=== PATIENT | male | born 1985 | race Hispanic/Latino ===

== ENCOUNTER 2020-06-15 19:46 | Inpatient (IN) | payer OTHER, MEDICAID ==
[~2020-06-15 19:46] MED LIST: Iopamidol 370 76% 100 ML VIAL ONE; Succinylcholine 200 MG/10 ml SYRINGE FS ONE
[2020-06-15] MEDS ORDERED: manNITOL 20% 0 ML ONE (19:59)
[2020-06-15] MEDS ORDERED: Mannitol 12.5 GM/50 ML ONE ×3 (19:59→20:04)
[2020-06-15] MEDS ORDERED: manNITOL 20% 500 ML ONE (20:05)
[2020-06-15 20:12] LABS: #Eosinphils 0.1 thou/uL (0.0-0.7); #Lymphocytes 1.7 thou/uL (1.20-3.40); #Monocytes 0.8 thou/uL (0.11-0.59); #Neutrophils 16.3 thou/uL (1.40-6.50); %Basophils 0.1 % (0.0-1.0); %Eosinophils 0.5 % (0.0-10.0); %Monocytes 4.1 % (0.0-10.0); %Neutrophils 86.4 % (42.0-75.0); Hemoglobin 12.6 g/dL (14.0-18.0); Mean Corpuscular HGB CONC 33.7 g/dL (32.0-36.0); Mean Corpuscular Hemoglobin 31.2 pg (27.0-31.0); Mean Corpuscular Volume 92.8 fL (78.0-98.0); Platelet Count 191 thou/uL (130-400); RBC Distribution Width 11.8 % (11.5-14.5); Red Blood Cell (RBC) Count 4.05 mill/uL (4.70-6.10); White Blood Cell (WBC) Count 18.9 thou/uL (4.8-10.8)
[2020-06-15 20:18] LABS: INR-International Normal Ratio 1.2; PTT 26.3 sec (22.9-36.1)
[2020-06-15 20:27] LABS: ALT (SGPT) 412 U/L (8-55); AST (SGOT) 406 U/L (5-34); Albumin 3.8 g/dL (3.5-5.0); Alkaline Phosphatase 86 U/L (40-110); Anion Gap 16 mmol/L (10-20); BUN (Urea Nitrogen) 19 mg/dL (8.9-20.6); Bilirubin, Total 0.6 mg/dL (0.2-1.2); Calc. Creatinine Clearance 0 mL/min (70-130); Calcium 7.7 mg/dL (7.8-10.44); Carbon Dioxide 20 mmol/L (22-29); Chloride 108 mmol/L (98-107); Globulin 2.6 g/dL (2.4-3.5); Protein, Total 6.4 g/dL (6.0-8.3); Sodium 141 mmol/L (136-145)
[2020-06-15 20:31] LABS: Glucose 252 mg/dL (70-105); Potassium 2.7 mmol/L (3.5-5.1)
[2020-06-15] MEDS ORDERED: Fentanyl 100 MCG/2 ML VIAL ONE (20:34)
[2020-06-15 20:44] LABS: Analyzer IN Cardio ER; Base Excess (BEa) -7.6 mEq/L (-2.0 to +3.0); CO2 Tension 31.4 mmHg (35.0-45.0); Calcium, Ionized (arterial) 1.08 mmol/L (1.12-1.30); Carboxyhemoglobin (COHb) 0.3 gm% (0.0-3.0); Hemoglobin (Hb) 11.1 g/dL (14.0-18.0); O2 Tension (PaO2), arterial 410.3 mmHg (80.0-100.0); Potassium - ABG Lab 2.66 mmol/L (3.70-5.30); pH, Arterial 7.35 (7.35-7.45)
[2020-06-15 20:45] LABS: Bacteria/HPF None Seen HPF (None Seen); Bilirubin Negative (Negative); Blood, Urine 3+ (Negative); Clarity Turbid (Clear); Glucose, Urine (Dipstick) 150 mg/dL (Negative); Ketone, Urine Negative (Negative); Leukocyte Negative Leu/uL (Negative); Nitrite Negative (Negative); Protein, Urine (Dipstick) 100 mg/dL (Neg-Trace); RBC/HPF Greater than 50 HPF (0-3); Specific Gravity, Urine 1.016 (1.002-1.036); Squamous Epithelial None Seen HPF (0-3); Urobilinogen Normal mg/dL (Less than 2)
[2020-06-15 20:45] LABS: Puncture Site LBA
[2020-06-15] MEDS ORDERED: Propofol 1,000 MG/100 ML VIAL IV ONE (20:47)
[2020-06-15] MEDS ORDERED: Fentanyl CADD 100 ML IV SCH ×2 (21:00→21:45)
[2020-06-15 21:09] LABS: Magnesium 1.9 mg/dL (1.6-2.6); Phosphorus 5.1 mg/dL (2.3-4.7)
[2020-06-15 21:19] LABS: Acetaminophen Less than 6.0 mcg/mL (10.0-30.0); Alcohol Less than 10 mg/dL (Less than 10); CK (CPK) 704 U/L (30-200); Salicylate Less than 8.0 mg/dL (15.0-30.0)
[2020-06-15 21:21] LABS: Amphetamine Not Detected (NotDetected); Barbiturates Screen Not Detected (NotDetected); Benzodiazepine Screen Not Detected (NotDetected); Cocaine Metabolite Screen Not Detected (NotDetected); Medtox Control Line Valid? VALID (VALID); Medtox Reader # READER 4; Methadone Not Detected (NotDetected); Methamphetamine Not Detected (NotDetected); Opiate Screen Not Detected (NotDetected); Oxycodone Screen Not Detected (NotDetected); Phencyclidine (PCP) Not Detected (NotDetected); THC/Cannabinoid Screen Not Detected (NotDetected); Tricyclic Screen Not Detected (NotDetected)
[2020-06-15] MEDS ORDERED: Dextrose 5% in Water 1,000 ML IV PRN (21:21)
[2020-06-15] MEDS ORDERED: Ondansetron PF 4 MG/2 ML Vial IVP PRN (21:21)
[2020-06-15] MEDS ORDERED: Dextrose 50% Abboject 50 ML SYRINGE SLOW IVP PRN (21:21)
[2020-06-15] MEDS ORDERED: Ventilator Sedation Protocol 1 EACH FS ONE (21:21)
[2020-06-15] MEDS ORDERED: Propofol 1,000 MG/100 ML VIAL IV PRN (21:45)
[2020-06-15] MEDS ORDERED: Propofol BOLUS 1,000 MG/100 ML VIAL IV PRN (21:45)
[2020-06-15] MEDS ORDERED: Lorazepam 2 MG/ML VIAL SLOW IVP PRN (21:45)
[2020-06-15] MEDS ORDERED: DISCONTINUE PREVIOUS NARCOTIC PAIN MEDICATIONS AND BENZODIAZEPINES FS SCH (21:45)
[2020-06-15] MEDS ORDERED: Fentanyl BOLUS 250 ML IVPB PRN (21:45)
[2020-06-15 22:19] LABS: SARS-CoV-2 NAA Rapid Test Not Detected (NotDetected)
[2020-06-15] MEDS ORDERED: Boostrix 0.5 ML (Tdap) VIAL ONE (22:20)
[2020-06-15] MEDS ORDERED: Lidocaine 1% PF 5 ML VIAL ONE (22:26)
[2020-06-15] MEDS ORDERED: Lidocaine 1% w/Epinephrine 1:100K 20 ML VIAL ONE (22:26)
[2020-06-15] MEDS ORDERED: Lidocaine 1% (PF) 30 ML VIAL ONE (22:27)
[2020-06-15] MEDS: Sodium Chloride 0.9% 1,000 ML IV SCH (23:45)
[2020-06-16] MEDS ORDERED: Sodium Chloride 0.9% 1,000 ML IV SCH (01:45)
[2020-06-16 03:53] LABS: #Lymphocytes 1.1 thou/uL (1.20-3.40); #Monocytes 1.2 thou/uL (0.11-0.59); #Neutrophils 10.4 thou/uL (1.40-6.50); %Eosinophils 0.2 % (0.0-10.0); %Lymphocytes 8.6 % (21.0-51.0); %Monocytes 9.6 % (0.0-10.0); %Neutrophils 81.6 % (42.0-75.0); Hemoglobin 10.5 g/dL (14.0-18.0); Mean Corpuscular HGB CONC 34.6 g/dL (32.0-36.0); Mean Corpuscular Hemoglobin 32.1 pg (27.0-31.0); Mean Corpuscular Volume 92.9 fL (78.0-98.0); Platelet Count 158 thou/uL (130-400); RBC Distribution Width 11.9 % (11.5-14.5); Red Blood Cell (RBC) Count 3.28 mill/uL (4.70-6.10); White Blood Cell (WBC) Count 12.8 thou/uL (4.8-10.8)
[2020-06-16 04:22] LABS: ALT (SGPT) 308 U/L (8-55); AST (SGOT) 250 U/L (5-34); Albumin 3.2 g/dL (3.5-5.0); Alkaline Phosphatase 69 U/L (40-110); Anion Gap 17 mmol/L (10-20); BUN (Urea Nitrogen) 17 mg/dL (8.9-20.6); Bilirubin, Total 0.7 mg/dL (0.2-1.2); CK (CPK) 1761 U/L (30-200); Calc. Creatinine Clearance 124 mL/min (70-130); Calcium 7.2 mg/dL (7.8-10.44); Carbon Dioxide 15 mmol/L (22-29); Chloride 113 mmol/L (98-107); Globulin 2.3 g/dL (2.4-3.5); Glucose 111 mg/dL (70-105); Magnesium 1.7 mg/dL (1.6-2.6); Phosphorus 3.2 mg/dL (2.3-4.7); Potassium 3.6 mmol/L (3.5-5.1); Protein, Total 5.5 g/dL (6.0-8.3); Sodium 141 mmol/L (136-145)
[2020-06-16 07:00] LABS: Lactic Acid 3.4 mmol/L (0.5-2.2)
[2020-06-16] MEDS ORDERED: Acetaminophen 650 MG/20.3 ML UDCUP PO SCH (07:30)
[2020-06-16] MEDS ORDERED: CEFAZOLIN 2 GM in Premix Bag 1 BAG IVPB SCH (07:45)
[2020-06-16] MEDS: Famotidine/PF 20 mg/2ml Vial SLOW IVP SCH ×2 (08:22→21:39)
[2020-06-16] MEDS: Sodium Chloride 0.9% 1,000 ML IV SCH ×3 (08:23→21:41)
[2020-06-16 08:37] LABS: Actual Bicarbonate (HCO3a) 17.8 mEq/L (22-28); Analyzer IN Cardio ER; Base Excess (BEa) -5.5 mEq/L (-2.0 to +3.0); CO2 Tension 27.8 mmHg (35.0-45.0); Calcium, Ionized (arterial) 1.09 mmol/L (1.12-1.30); Carboxyhemoglobin (COHb) 0.3 gm% (0.0-3.0); Hemoglobin (Hb) 10.5 g/dL (14.0-18.0); O2 Tension (PaO2), arterial 102.8 mmHg (80.0-100.0); Potassium - ABG Lab 3.49 mmol/L (3.70-5.30); pH, Arterial 7.42 (7.35-7.45)
[2020-06-16 08:44] LABS: Puncture Site RBA
[2020-06-16] MEDS ORDERED: Potassium Phosphate 30 MMOL, Magnesium Sulfate 2 GM in Sodium Chloride 0.9% 250 ML 250 ML IVPB SCH (09:00)
[2020-06-16] MEDS ORDERED: Magnesium Sulfate 2 GM in Sodium Chloride 0.9% 100 ML IVPB SCH (09:00)
[2020-06-16] MEDS ORDERED: Calcium Chloride 1 GM/10 ML Abboject SYRINGE IVP SCH (13:30)
[2020-06-16] MEDS ORDERED: Fentanyl CADD 100 ML ONE (14:33)
[2020-06-16] MEDS ORDERED: Fentanyl 250 MCG/5 ML VIAL ONE (16:54)
[2020-06-16] MEDS ORDERED: Rocuronium Bromide 10 MG/ML (10ML VIAL) ONE (17:13)
[2020-06-16] MEDS ORDERED: PHENYLEPHRINE-NS 100 MCG/ML 10 ML SYRINGE ONE (17:13)
[2020-06-16] MEDS ORDERED: Phenylephrine 10 MG/ML VIAL ONE (17:24)
[2020-06-16] MEDS: Acetaminophen 650 MG/20.3 ML UDCUP PO PRN (23:37)
[2020-06-17] MEDS: Morphine 2 MG/ML VIAL SLOW IVP PRN (00:56)
[2020-06-17] MEDS ORDERED: Sodium Chloride 0.9% 1,000 ML IV SCH (02:30)
[2020-06-17] MEDS: CEFAZOLIN 2 GM in Premix Bag 1 BAG IVPB SCH ×2 (03:20→09:30)
[2020-06-17 03:24] LABS: #Lymphocytes 1.2 thou/uL (1.20-3.40); #Monocytes 0.8 thou/uL (0.11-0.59); #Neutrophils 5.7 thou/uL (1.40-6.50); %Basophils 0.1 % (0.0-1.0); %Eosinophils 0.4 % (0.0-10.0); %Lymphocytes 15.6 % (21.0-51.0); %Monocytes 10.5 % (0.0-10.0); %Neutrophils 73.4 % (42.0-75.0); Hemoglobin 7.7 g/dL (14.0-18.0); Mean Corpuscular HGB CONC 34.2 g/dL (32.0-36.0); Mean Corpuscular Hemoglobin 32.2 pg (27.0-31.0); Mean Corpuscular Volume 94.1 fL (78.0-98.0); Mean Platelet Volume 9.1 fL (7.4-10.4); Platelet Count 132 thou/uL (130-400); RBC Distribution Width 11.8 % (11.5-14.5); Red Blood Cell (RBC) Count 2.38 mill/uL (4.70-6.10); White Blood Cell (WBC) Count 7.7 thou/uL (4.8-10.8)
[2020-06-17 03:34] LABS: Lactic Acid 1.5 mmol/L (0.5-2.2)
[2020-06-17 03:51] LABS: ALT (SGPT) 141 U/L (8-55); AST (SGOT) 85 U/L (5-34); Albumin 2.6 g/dL (3.5-5.0); Alkaline Phosphatase 57 U/L (40-110); Anion Gap 11 mmol/L (10-20); BUN (Urea Nitrogen) 13 mg/dL (8.9-20.6); Bilirubin, Total 1.1 mg/dL (0.2-1.2); Calc. Creatinine Clearance 150 mL/min (70-130); Calcium 7.2 mg/dL (7.8-10.44); Carbon Dioxide 19 mmol/L (22-29); Chloride 117 mmol/L (98-107); Globulin 2.1 g/dL (2.4-3.5); Glucose 123 mg/dL (70-105); Magnesium 1.8 mg/dL (1.6-2.6); Phosphorus 2.1 mg/dL (2.3-4.7); Potassium 3.6 mmol/L (3.5-5.1); Protein, Total 4.7 g/dL (6.0-8.3); Sodium 143 mmol/L (136-145)
[2020-06-17] MEDS: Sodium Chloride 0.9% 1,000 ML IV SCH (06:32)
[2020-06-17] MEDS ORDERED: Lactated Ringer's 1,000 ML IV SCH ×2 (08:15→16:00)
[2020-06-17] MEDS ORDERED: Fentanyl CADD 100 ML ONE (09:07)
[2020-06-17] MEDS: Famotidine/PF 20 mg/2ml Vial SLOW IVP SCH ×2 (09:27→20:39)
[2020-06-17] MEDS ORDERED: Furosemide 20 MG/2 ML VIAL SLOW IVP SCH (10:00)
[2020-06-17 10:26] LABS: Actual Bicarbonate (HCO3a) 20.6 mEq/L (22-28); Calcium, Ionized (arterial) 1.12 mmol/L (1.12-1.30); Carboxyhemoglobin (COHb) 0.8 gm% (0.0-3.0); Hemoglobin (Hb) 7.8 g/dL (14.0-18.0); O2 Tension (PaO2), arterial 103.6 mmHg (80.0-100.0); Potassium - ABG Lab 3.58 mmol/L (3.70-5.30); pH, Arterial 7.39 (7.35-7.45)
[2020-06-17 10:27] LABS: Puncture Site RRA
[2020-06-17] MEDS: Acetaminophen 650 MG/20.3 ML UDCUP PO PRN ×2 (12:00→20:38)
[2020-06-17] MEDS ORDERED: cloNIDine 0.2 MG TAB PO SCH (12:00)
[2020-06-17] MEDS ORDERED: cloNIDine 0.1 MG TAB PO SCH ×2 (12:15→18:00)
[2020-06-17 14:01] LABS: Actual Bicarbonate (HCO3a) 26.2 mEq/L (22-28); Base Excess (BEa) -4.1 mEq/L (-2.0 to +3.0); Calcium, Ionized (arterial) 1.17 mmol/L (1.12-1.30); Carboxyhemoglobin (COHb) 0.3 gm% (0.0-3.0); O2 Tension (PaO2), arterial 94.1 mmHg (80.0-100.0)
[2020-06-17] MEDS: Insulin Regular 300 UNITS/3 ML VIAL SC PRN (16:32)
[2020-06-17] MEDS: Lactated Ringer's 1,000 ML IV SCH (20:40)
[2020-06-17 21:26] LABS: #Lymphocytes 1.1 thou/uL (1.20-3.40); #Monocytes 0.6 thou/uL (0.11-0.59); #Neutrophils 5.7 thou/uL (1.40-6.50); %Basophils 0.2 % (0.0-1.0); %Eosinophils 0.3 % (0.0-10.0); %Lymphocytes 14.3 % (21.0-51.0); %Monocytes 8.2 % (0.0-10.0); Mean Corpuscular HGB CONC 34.4 g/dL (32.0-36.0); Mean Corpuscular Hemoglobin 32.5 pg (27.0-31.0); Mean Corpuscular Volume 94.5 fL (78.0-98.0); Mean Platelet Volume 8.9 fL (7.4-10.4); Platelet Count 130 thou/uL (130-400); RBC Distribution Width 11.8 % (11.5-14.5); Red Blood Cell (RBC) Count 2.16 mill/uL (4.70-6.10); White Blood Cell (WBC) Count 7.4 thou/uL (4.8-10.8)
[2020-06-17] MEDS: Oxymetazoline HCl 0.05% (30 ML BOT) NS SCH (21:51)
[2020-06-17] MEDS: cloNIDine 0.1 MG TAB PO SCH (21:51)
[2020-06-17 22:20] LABS: Bilirubin Negative (Negative); Blood, Urine 3+ (Negative); Clarity Clear (Clear); Glucose, Urine (Dipstick) Normal (Negative); Ketone, Urine 40 mg/dL (Negative); Leukocyte Negative Leu/uL (Negative); Nitrite Negative (Negative); Protein, Urine (Dipstick) 50 mg/dL (Neg-Trace); RBC/HPF Greater than 50 HPF (0-3); Specific Gravity, Urine 1.024 (1.002-1.036); Squamous Epithelial None Seen HPF (0-3); Urobilinogen Normal mg/dL (Less than 2)
[2020-06-17 22:21] LABS: Bacteria/HPF 1+ HPF (None Seen); Urine Culture Reflex Yes Yes
[2020-06-18] MEDS: cloNIDine 0.1 MG TAB PO SCH ×4 (03:32→20:31)
[2020-06-18] MEDS: Acetaminophen 650 MG/20.3 ML UDCUP PO PRN ×2 (03:32→13:41)
[2020-06-18 03:39] LABS: #Lymphocytes 0.9 thou/uL (1.20-3.40); %Basophils 0.3 % (0.0-1.0); %Eosinophils 0.4 % (0.0-10.0); %Lymphocytes 10.5 % (21.0-51.0); %Monocytes 11.2 % (0.0-10.0); %Neutrophils 77.5 % (42.0-75.0); Hemoglobin 7.4 g/dL (14.0-18.0); Mean Corpuscular HGB CONC 34.1 g/dL (32.0-36.0); Mean Corpuscular Hemoglobin 31.9 pg (27.0-31.0); Mean Corpuscular Volume 93.4 fL (78.0-98.0); Mean Platelet Volume 9.1 fL (7.4-10.4); Platelet Count 123 thou/uL (130-400); RBC Distribution Width 11.9 % (11.5-14.5); Red Blood Cell (RBC) Count 2.32 mill/uL (4.70-6.10)
[2020-06-18 03:53] LABS: Lactic Acid 2.1 mmol/L (0.5-2.2)
[2020-06-18 04:04] LABS: ALT (SGPT) 95 U/L (8-55); AST (SGOT) 74 U/L (5-34); Albumin 2.8 g/dL (3.5-5.0); Alkaline Phosphatase 60 U/L (40-110); Anion Gap 13 mmol/L (10-20); BUN (Urea Nitrogen) 11 mg/dL (8.9-20.6); Bilirubin, Direct 0.5 mg/dL (0.1-0.3); Bilirubin, Total 1.2 mg/dL (0.2-1.2); CK (CPK) 2401 U/L (30-200); Calc. Creatinine Clearance 159 mL/min (70-130); Calcium 7.7 mg/dL (7.8-10.44); Carbon Dioxide 19 mmol/L (22-29); Chloride 114 mmol/L (98-107); Glucose 125 mg/dL (70-105); Potassium 3.6 mmol/L (3.5-5.1); Protein, Total 5.3 g/dL (6.0-8.3); Sodium 142 mmol/L (136-145)
[2020-06-18 07:25] LABS: CO2 Tension 88.4 mmHg (35.0-45.0); pH, Arterial 7.09 (7.35-7.45)
[2020-06-18 07:26] LABS: Puncture Site RRA
[2020-06-18] MEDS ORDERED: Vecuronium 10 MG VIAL IVP SCH (08:15)
[2020-06-18] MEDS: Midazolam HCl 2 mg/2 ml Vial SLOW IVP PRN (08:26)
[2020-06-18] MEDS: Famotidine/PF 20 mg/2ml Vial SLOW IVP SCH ×2 (08:51→20:30)
[2020-06-18] MEDS: Oxymetazoline HCl 0.05% (30 ML BOT) NS SCH ×2 (09:04→20:31)
[2020-06-18 09:43] LABS: Actual Bicarbonate (HCO3a) 24.2 mEq/L (22-28); Base Excess (BEa) -1.1 mEq/L (-2.0 to +3.0); CO2 Tension 43.1 mmHg (35.0-45.0); Calcium, Ionized (arterial) 1.08 mmol/L (1.12-1.30); Carboxyhemoglobin (COHb) 0.8 gm% (0.0-3.0); O2 Tension (PaO2), arterial 72.6 mmHg (80.0-100.0); Potassium - ABG Lab 3.48 mmol/L (3.70-5.30); pH, Arterial 7.37 (7.35-7.45)
[2020-06-18 09:47] LABS: ALV-art Gradient 230.025 mmHg (0-20); Puncture Site RRA
[2020-06-18] MEDS ORDERED: Lactated Ringer's 1,000 ML IV SCH ×2 (15:15→22:44)
[2020-06-18] MEDS: Lactated Ringer's 1,000 ML IV SCH ×2 (15:39→23:07)
[2020-06-18] MEDS ORDERED: Thiamine HCl 200 MG/2 ML VIAL SLOW IVP SCH (16:00)
[2020-06-18 16:11] LABS: Hemoglobin 8.3 g/dL (14.0-18.0); Mean Corpuscular HGB CONC 33.9 g/dL (32.0-36.0); Mean Corpuscular Hemoglobin 31.7 pg (27.0-31.0); Mean Corpuscular Volume 93.6 fL (78.0-98.0); Mean Platelet Volume 8.9 fL (7.4-10.4); Platelet Count 154 thou/uL (130-400); RBC Distribution Width 12.3 % (11.5-14.5); Red Blood Cell (RBC) Count 2.63 mill/uL (4.70-6.10); White Blood Cell (WBC) Count 3.9 thou/uL (4.8-10.8)
[2020-06-18 16:28] LABS: Band 63 % (5-11); Lymphocytes 8 % (21-51); MDiff Complete? YES; Metamyelocyte 6 % (0-0); Monocytes 4 % (0-10); Neutrophil 14 % (42-75); Platelet Morphology Comment Appears Adequate; Polychromasia SLIGHT = 2-3 cells (100X) (0-2/hpf); Reactive Lymphocytes 5 % (0-10); Reflex for Review?? NO
[2020-06-18] MEDS ORDERED: Midazolam HCl 2 mg/2 ml Vial SLOW IVP SCH (16:45)
[2020-06-18 17:36] LABS: Free T4 (Free Thyroxine) 0.73 ng/dL (0.70-1.48)
[2020-06-18] MEDS: Piperacillin/Tazobactam 3.375 GM in Sodium Chloride 0.9% 100 ML IVPB SCH (17:55)
[2020-06-18] MEDS: Ibuprofen 100 MG/5 ML UDCUP PO SCH (17:56)
[2020-06-18] MEDS ORDERED: Oxazepam 10 MG CAP PO SCH (22:00)
[2020-06-18] MEDS ORDERED: Calcium Chloride 1 GM/10 ML Abboject SYRINGE IVP SCH (22:15)
[2020-06-18 22:17] LABS: Actual Bicarbonate (HCO3a) 24.5 mEq/L (22-28); CO2 Tension 50.9 mmHg (35.0-45.0); Calcium, Ionized (arterial) 1.19 mmol/L (1.12-1.30); Carboxyhemoglobin (COHb) 0.3 gm% (0.0-3.0); Hemoglobin (Hb) 8.4 g/dL (14.0-18.0); Potassium - ABG Lab 3.52 mmol/L (3.70-5.30)
[2020-06-18 22:19] LABS: Puncture Site LRA
[2020-06-18 22:20] LABS: ALV-art Gradient 391.475 mmHg (0-20)
[2020-06-18] MEDS ORDERED: Hydrocortisone Sod Succ/PF 100 mg/2 ml Vial IVP SCH ×2 (22:28→22:30)
[2020-06-18] MEDS ORDERED: Albumin 5% 0 ML ONE (22:36)
[2020-06-19] MEDS: Piperacillin/Tazobactam 3.375 GM in Sodium Chloride 0.9% 100 ML IVPB SCH ×5 (00:15→22:34)
[2020-06-19] MEDS: Ibuprofen 100 MG/5 ML UDCUP PO SCH ×3 (01:29→17:47)
[2020-06-19] MEDS ORDERED: Hydrocortisone Sod Succ/PF 100 mg/2 ml Vial IVP SCH (03:00)
[2020-06-19] MEDS: cloNIDine 0.1 MG TAB PO SCH ×4 (03:13→22:22)
[2020-06-19] MEDS ORDERED: Norepinephrine 8 MG/0.9% NS 250 ML ONE (03:47)
[2020-06-19 03:49] LABS: Actual Bicarbonate (HCO3a) 24.6 mEq/L (22-28); Base Excess (BEa) -3.9 mEq/L (-2.0 to +3.0); Calcium, Ionized (arterial) 1.31 mmol/L (1.12-1.30); Carboxyhemoglobin (COHb) 0.4 gm% (0.0-3.0); Hemoglobin (Hb) 8.7 g/dL (14.0-18.0); Potassium - ABG Lab 2.78 mmol/L (3.70-5.30)
[2020-06-19 03:50] LABS: CO2 Tension 65.7 mmHg (35.0-45.0); pH, Arterial 7.19 (7.35-7.45)
[2020-06-19 03:51] LABS: O2 Tension (PaO2), arterial 53.3 mmHg (80.0-100.0); Puncture Site LRA
[2020-06-19 03:52] LABS: ALV-art Gradient 577.575 mmHg (0-20)
[2020-06-19] MEDS ORDERED: Phenylephrine 40 MG in Sodium Chloride 0.9% 250 ML 250 ML IVPB PRN (04:03)
[2020-06-19] MEDS ORDERED: Phenylephrine 40 MG in Sodium Chloride 0.9% 250 ML 250 ML IVPB SCH (04:15)
[2020-06-19 04:22] LABS: SARS-CoV-2 PCR by NAA Not Detected (NotDetected)
[2020-06-19 04:23] LABS: Anion Gap 11 mmol/L (10-20); BUN (Urea Nitrogen) 13 mg/dL (8.9-20.6); CK (CPK) 915 U/L (30-200); Calc. Creatinine Clearance 171 mL/min (70-130); Calcium 8.4 mg/dL (7.8-10.44); Carbon Dioxide 24 mmol/L (22-29); Chloride 113 mmol/L (98-107); Glucose 132 mg/dL (70-105); Magnesium 1.8 mg/dL (1.6-2.6); Phosphorus 2.1 mg/dL (2.3-4.7); Sodium 145 mmol/L (136-145)
[2020-06-19] MEDS ORDERED: VANCOMYCIN 1.75 GM/350 ML BAG IVPB STA (04:36)
[2020-06-19 05:02] LABS: Potassium 2.7 mmol/L (3.5-5.1)
[2020-06-19 05:04] LABS: Band 41 % (5-11); Hemoglobin 8.1 g/dL (14.0-18.0); Lymphocytes 27 % (21-51); MDiff Complete? YES; Mean Corpuscular HGB CONC 33.4 g/dL (32.0-36.0); Mean Corpuscular Hemoglobin 31.5 pg (27.0-31.0); Mean Corpuscular Volume 94.4 fL (78.0-98.0); Mean Platelet Volume 8.9 fL (7.4-10.4); Metamyelocyte 7 % (0-0); Monocytes 10 % (0-10); Myelocyte 5 % (0-0); Neutrophil 10 % (42-75); Nucleated RBC 1 % (0); Platelet Count 145 thou/uL (130-400); RBC Distribution Width 12.5 % (11.5-14.5); Red Blood Cell (RBC) Count 2.57 mill/uL (4.70-6.10); White Blood Cell (WBC) Count 1.3 thou/uL (4.8-10.8)
[2020-06-19] MEDS ORDERED: Potassium Phosphate 30 MMOL in Sodium Chloride 0.9% 250 ML 250 ML IVPB SCH ×2 (05:30→06:00)
[2020-06-19] MEDS ORDERED: Vancomycin 1.5 GRAM/300 ML BAG 1.5 GM in Premix Bag 1 BAG IVPB SCH (05:45)
[2020-06-19] MEDS ORDERED: Norepinephrine 8 MG/0.9% NS 250 ML IVPB PRN ×2 (05:52→16:11)
[2020-06-19] MEDS: Potassium Phosphate 30 MMOL in Sodium Chloride 0.9% 250 ML 250 ML IVPB SCH ×2 (05:53→12:13)
[2020-06-19 06:07] LABS: Lactic Acid 2.3 mmol/L (0.5-2.2)
[2020-06-19 06:12] LABS: ALT (SGPT) 56 U/L (8-55); AST (SGOT) 42 U/L (5-34); Albumin 2.7 g/dL (3.5-5.0); Alkaline Phosphatase 53 U/L (40-110); Bilirubin, Total 1.6 mg/dL (0.2-1.2)
[2020-06-19] MEDS: Lactated Ringer's 1,000 ML IV SCH ×3 (06:42→15:25)
[2020-06-19 06:54] LABS: Actual Bicarbonate (HCO3a) 24.5 mEq/L (22-28); Base Excess (BEa) -2.1 mEq/L (-2.0 to +3.0); CO2 Tension 52.1 mmHg (35.0-45.0); Calcium, Ionized (arterial) 1.26 mmol/L (1.12-1.30); Carboxyhemoglobin (COHb) 0.2 gm% (0.0-3.0); O2 Tension (PaO2), arterial 86.4 mmHg (80.0-100.0); Potassium - ABG Lab 2.92 mmol/L (3.70-5.30); pH, Arterial 7.29 (7.35-7.45)
[2020-06-19 06:59] LABS: ALV-art Gradient 561.475 mmHg (0-20); Puncture Site RRA
[2020-06-19] MEDS: Polyethylene Glycol 3350 17 GM Packet PO SCH (08:46)
[2020-06-19] MEDS: Folic Acid 1 MG TAB PO SCH (08:46)
[2020-06-19] MEDS: Famotidine/PF 20 mg/2ml Vial SLOW IVP SCH ×2 (08:46→22:23)
[2020-06-19] MEDS: Oxymetazoline HCl 0.05% (30 ML BOT) NS SCH ×2 (09:19→22:24)
[2020-06-19] MEDS: Metoclopramide 10 MG/10 ML UDCUP PO SCH ×3 (09:30→22:34)
[2020-06-19] MEDS ORDERED: Iopamidol-370 76% 500 ML 1 ML ONE (09:30)
[2020-06-19] MEDS ORDERED: Midazolam HCl 2 mg/2 ml Vial SLOW IVP SCH (11:15)
[2020-06-19] MEDS ORDERED: Vecuronium 10 MG VIAL ONE (11:28)
[2020-06-19] MEDS ORDERED: Vecuronium 10 MG VIAL IVP SCH (11:59)
[2020-06-19] MEDS ORDERED: Potassium Phosphate 30 MMOL, Magnesium Sulfate 2 GM in Sodium Chloride 0.9% 250 ML 250 ML IVPB SCH (12:00)
[2020-06-19] MEDS ORDERED: Fentanyl CADD 100 ML ONE (12:46)
[2020-06-19] MEDS ORDERED: Vancomycin HCl 1.25 GM in Sodium Chloride 0.9% 250 ML 250 ML IVPB SCH (14:00)
[2020-06-19] MEDS: Hydrocortisone Sod Succ/PF 100 mg/2 ml Vial IVP SCH ×2 (14:22→22:24)
[2020-06-19] MEDS: Insulin Regular 300 UNITS/3 ML VIAL SC PRN (16:04)
[2020-06-19 19:37] LABS: Actual Bicarbonate (HCO3a) 23.2 mEq/L (22-28); Base Excess (BEa) -1.9 mEq/L (-2.0 to +3.0); CO2 Tension 40.9 mmHg (35.0-45.0); Calcium, Ionized (arterial) 1.17 mmol/L (1.12-1.30); Carboxyhemoglobin (COHb) 0.3 gm% (0.0-3.0); Hemoglobin (Hb) 7.4 g/dL (14.0-18.0); Potassium - ABG Lab 3.51 mmol/L (3.70-5.30); Puncture Site LRA; pH, Arterial 7.37 (7.35-7.45)
[2020-06-19 19:38] LABS: ALV-art Gradient 209.375 mmHg (0-20)
[2020-06-20] MEDS: Ibuprofen 100 MG/5 ML UDCUP PO SCH ×4 (02:43→18:00)
[2020-06-20] MEDS: Lactated Ringer's 1,000 ML IV SCH (02:44)
[2020-06-20] MEDS: cloNIDine 0.1 MG TAB PO SCH (02:44)
[2020-06-20] MEDS: Metoclopramide HCl 10 MG/2 ML VIAL IVP SCH ×4 (02:48→21:11)
[2020-06-20 03:39] LABS: Lactic Acid 1.8 mmol/L (0.5-2.2)
[2020-06-20 03:42] LABS: Anion Gap 11 mmol/L (10-20); BUN (Urea Nitrogen) 15 mg/dL (8.9-20.6); Calc. Creatinine Clearance 171 mL/min (70-130); Calcium 8.2 mg/dL (7.8-10.44); Carbon Dioxide 26 mmol/L (22-29); Chloride 113 mmol/L (98-107); Glucose 147 mg/dL (70-105); Magnesium 2.1 mg/dL (1.6-2.6); Potassium 3.8 mmol/L (3.5-5.1); Sodium 146 mmol/L (136-145)
[2020-06-20 04:10] LABS: Phosphorus 1.8 mg/dL (2.3-4.7)
[2020-06-20] MEDS: Acetaminophen 650 MG/20.3 ML UDCUP PO PRN ×2 (04:51→21:10)
[2020-06-20] MEDS: Piperacillin/Tazobactam 3.375 GM in Sodium Chloride 0.9% 100 ML IVPB SCH ×4 (04:52→23:09)
[2020-06-20] MEDS: Hydrocortisone Sod Succ/PF 100 mg/2 ml Vial IVP SCH ×3 (04:53→21:11)
[2020-06-20 05:36] LABS: Band 46 % (5-11); Eosinophils 1 % (0-10); Hemoglobin 7.8 g/dL (14.0-18.0); Lymphocytes 13 % (21-51); MDiff Complete? YES; Mean Corpuscular HGB CONC 32.8 g/dL (32.0-36.0); Mean Corpuscular Volume 94.4 fL (78.0-98.0); Mean Platelet Volume 9.1 fL (7.4-10.4); Metamyelocyte 10 % (0-0); Monocytes 2 % (0-10); Myelocyte 6 % (0-0); Neutrophil 21 % (42-75); Nucleated RBC 7 % (0); Platelet Count 174 thou/uL (130-400); RBC Distribution Width 12.8 % (11.5-14.5); Red Blood Cell (RBC) Count 2.53 mill/uL (4.70-6.10); White Blood Cell (WBC) Count 8.4 thou/uL (4.8-10.8)
[2020-06-20] MEDS ORDERED: Levothyroxine 100 MCG SDV IVP SCH (06:00)
[2020-06-20] MEDS ORDERED: Potassium Phosphate 30 MMOL, Magnesium Sulfate 2 GM in Sodium Chloride 0.9% 250 ML 250 ML IVPB SCH (08:45)
[2020-06-20] MEDS: Dextrose 5 %-0.45 % NaCl 1,000 ML IV SCH ×2 (09:25→19:30)
[2020-06-20] MEDS: Polyethylene Glycol 3350 17 GM Packet PO SCH (09:26)
[2020-06-20] MEDS: Famotidine/PF 20 mg/2ml Vial SLOW IVP SCH ×2 (09:28→21:11)
[2020-06-20] MEDS: Folic Acid 1 MG TAB PO SCH (09:28)
[2020-06-20] MEDS: Oxymetazoline HCl 0.05% (30 ML BOT) NS SCH ×2 (09:30→21:13)
[2020-06-20 11:36] LABS: Actual Bicarbonate (HCO3a) 25.7 mEq/L (22-28); Base Excess (BEa) 1.2 mEq/L (-2.0 to +3.0); CO2 Tension 40.6 mmHg (35.0-45.0); Calcium, Ionized (arterial) 1.12 mmol/L (1.12-1.30); Hemoglobin (Hb) 8.1 g/dL (14.0-18.0); O2 Tension (PaO2), arterial 81.2 mmHg (80.0-100.0); Potassium - ABG Lab 3.57 mmol/L (3.70-5.30); pH, Arterial 7.42 (7.35-7.45)
[2020-06-20 11:37] LABS: Puncture Site RRA
[2020-06-20] MEDS: Insulin Regular 300 UNITS/3 ML VIAL SC PRN (22:11)
[2020-06-21] MEDS: Ibuprofen 100 MG/5 ML UDCUP PO SCH ×3 (01:24→18:01)
[2020-06-21] MEDS: Metoclopramide HCl 10 MG/2 ML VIAL IVP SCH ×4 (02:15→20:42)
[2020-06-21] MEDS: Morphine 2 MG/ML VIAL SLOW IVP PRN ×5 (02:15→18:02)
[2020-06-21] MEDS: Dextrose 5 %-0.45 % NaCl 1,000 ML IV SCH (04:06)
[2020-06-21 04:42] LABS: Anion Gap 8 mmol/L (10-20); BUN (Urea Nitrogen) 13 mg/dL (8.9-20.6); Calc. Creatinine Clearance 195 mL/min (70-130); Carbon Dioxide 28 mmol/L (22-29); Chloride 113 mmol/L (98-107); Glucose 155 mg/dL (70-105); Magnesium 2.4 mg/dL (1.6-2.6); Potassium 3.4 mmol/L (3.5-5.1); Sodium 146 mmol/L (136-145)
[2020-06-21 04:43] LABS: Hemoglobin 8.1 g/dL (14.0-18.0); Mean Corpuscular HGB CONC 32.9 g/dL (32.0-36.0); Mean Corpuscular Volume 94.1 fL (78.0-98.0); Mean Platelet Volume 8.9 fL (7.4-10.4); Platelet Count 173 thou/uL (130-400); RBC Distribution Width 12.8 % (11.5-14.5); Red Blood Cell (RBC) Count 2.63 mill/uL (4.70-6.10); White Blood Cell (WBC) Count 14.9 thou/uL (4.8-10.8)
[2020-06-21 05:25] LABS: Band 40 % (5-11); Lymphocytes 13 % (21-51); MDiff Complete? YES; Monocytes 5 % (0-10); Myelocyte 2 % (0-0); Neutrophil 40 % (42-75); Nucleated RBC 1 % (0)
[2020-06-21] MEDS: Hydrocortisone Sod Succ/PF 100 mg/2 ml Vial IVP SCH (05:30)
[2020-06-21] MEDS: Piperacillin/Tazobactam 3.375 GM in Sodium Chloride 0.9% 100 ML IVPB SCH ×4 (05:30→23:18)
[2020-06-21] MEDS ORDERED: Furosemide 20 MG/2 ML VIAL SLOW IVP SCH (08:30)
[2020-06-21] MEDS: Famotidine/PF 20 mg/2ml Vial SLOW IVP SCH ×2 (08:42→20:42)
[2020-06-21] MEDS: Oxymetazoline HCl 0.05% (30 ML BOT) NS SCH ×2 (08:43→20:43)
[2020-06-21] MEDS: Folic Acid 1 MG TAB PO SCH (08:43)
[2020-06-21] MEDS: Midazolam HCl 2 mg/2 ml Vial SLOW IVP PRN (09:49)
[2020-06-21] MEDS: Enoxaparin Sodium 40 MG/0.4 ML SYRINGE SC SCH (10:13)
[2020-06-21] MEDS: Acetaminophen/Codeine 30-300mg Tablet PO SCH ×3 (12:20→20:42)
[2020-06-21] MEDS: Insulin Regular 300 UNITS/3 ML VIAL SC PRN (16:58)
[2020-06-21] MEDS: Amantadine HCl 100 mg Capsule PO SCH (20:43)
[2020-06-22] MEDS: Ibuprofen 100 MG/5 ML UDCUP PO SCH ×3 (00:01→17:38)
[2020-06-22] MEDS: Acetaminophen/Codeine 30-300mg Tablet PO SCH ×6 (00:06→19:43)
[2020-06-22] MEDS: Morphine 2 MG/ML VIAL SLOW IVP PRN ×2 (02:27→20:20)
[2020-06-22] MEDS: Metoclopramide HCl 10 MG/2 ML VIAL IVP SCH ×2 (02:27→11:50)
[2020-06-22] MEDS: Insulin Regular 300 UNITS/3 ML VIAL SC PRN (04:10)
[2020-06-22] MEDS: Piperacillin/Tazobactam 3.375 GM in Sodium Chloride 0.9% 100 ML IVPB SCH ×4 (05:39→23:10)
[2020-06-22 07:41] LABS: Anion Gap 11 mmol/L (10-20); BUN (Urea Nitrogen) 19 mg/dL (8.9-20.6); Calc. Creatinine Clearance 202 mL/min (70-130); Calcium 7.7 mg/dL (7.8-10.44); Carbon Dioxide 28 mmol/L (22-29); Chloride 112 mmol/L (98-107); Glucose 133 mg/dL (70-105); Potassium 3.5 mmol/L (3.5-5.1); Sodium 147 mmol/L (136-145)
[2020-06-22 07:56] LABS: Hemoglobin 7.5 g/dL (14.0-18.0); Mean Corpuscular HGB CONC 32.4 g/dL (32.0-36.0); Mean Corpuscular Hemoglobin 30.6 pg (27.0-31.0); Mean Corpuscular Volume 94.5 fL (78.0-98.0); Mean Platelet Volume 9.6 fL (7.4-10.4); Platelet Count 204 thou/uL (130-400); RBC Distribution Width 12.7 % (11.5-14.5); Red Blood Cell (RBC) Count 2.45 mill/uL (4.70-6.10); White Blood Cell (WBC) Count 11.9 thou/uL (4.8-10.8)
[2020-06-22] MEDS: Enoxaparin Sodium 40 MG/0.4 ML SYRINGE SC SCH (09:34)
[2020-06-22] MEDS: Famotidine/PF 20 mg/2ml Vial SLOW IVP SCH ×2 (09:34→19:43)
[2020-06-22] MEDS: Amantadine HCl 100 mg Capsule PO SCH ×2 (09:34→19:42)
[2020-06-22] MEDS: Saccharomyces boulardii 250 MG CAP PO SCH (09:41)
[2020-06-22] MEDS: Ferrous Sulfate 325 MG TAB PO SCH ×2 (09:41→19:45)
[2020-06-22] MEDS: cloNIDine 0.1 MG TAB PO SCH ×2 (09:41→15:22)
[2020-06-22] MEDS: Oxymetazoline HCl 0.05% (30 ML BOT) NS SCH ×2 (09:42→22:30)
[2020-06-22] MEDS: Ascorbic Acid 500 mg Chewable Tablet PO SCH ×2 (09:42→19:43)
[2020-06-22 09:46] LABS: Band 30 % (5-11); Eosinophils 4 % (0-10); Lymphocytes 11 % (21-51); MDiff Complete? YES; Metamyelocyte 1 % (0-0); Monocytes 4 % (0-10); Myelocyte 2 % (0-0); Neutrophil 48 % (42-75); Nucleated RBC 6 % (0); Platelet Morphology Comment Appears Adequate
[2020-06-22 10:16] LABS: Magnesium 2.2 mg/dL (1.6-2.6); Phosphorus 2.9 mg/dL (2.3-4.7)
[2020-06-22] MEDS: Folic Acid 1 MG TAB PO SCH (13:47)
[2020-06-22 15:03] LABS: CO2 Tension 40.4 mmHg (35.0-45.0); Calcium, Ionized (arterial) 1.11 mmol/L (1.12-1.30); Carboxyhemoglobin (COHb) 1.3 gm% (0.0-3.0); Hemoglobin (Hb) 8.6 g/dL (14.0-18.0); Potassium - ABG Lab 3.72 mmol/L (3.70-5.30); pH, Arterial 7.47 (7.35-7.45)
[2020-06-22 15:07] LABS: O2 Tension (PaO2), arterial 54.6 mmHg (80.0-100.0)
[2020-06-22 15:09] LABS: Puncture Site LRA
[2020-06-22] MEDS ORDERED: Morphine 4 MG/ML VIAL ONE (16:50)
[2020-06-22] MEDS ORDERED: Calcium Chloride 1 GM/10 ML Abboject SYRINGE IVP SCH (17:00)
[2020-06-22] MEDS ORDERED: Morphine 4 MG/ML VIAL SLOW IVP SCH (17:00)
[2020-06-22 17:40] LABS: Troponin I 0.109 ng/mL (< 0.028)
[2020-06-22] MEDS ORDERED: Fentanyl CADD 100 ML ONE (18:14)
[2020-06-22] MEDS: Acetaminophen 650 MG/20.3 ML UDCUP PO PRN (20:18)
[2020-06-22 21:55] LABS: Troponin I 0.121 ng/mL (< 0.028)
[2020-06-23] MEDS: Ibuprofen 100 MG/5 ML UDCUP PO SCH ×3 (01:01→17:59)
[2020-06-23] MEDS: Acetaminophen/Codeine 30-300mg Tablet PO SCH ×2 (01:01→04:30)
[2020-06-23 01:08] LABS: Troponin I 0.108 ng/mL (< 0.028)
[2020-06-23 01:14] LABS: Band 20 % (5-11); Eosinophils 1 % (0-10); Lymphocytes 12 % (21-51); MDiff Complete? YES; Mean Corpuscular HGB CONC 33.6 g/dL (32.0-36.0); Mean Corpuscular Volume 95.4 fL (78.0-98.0); Mean Platelet Volume 9.4 fL (7.4-10.4); Metamyelocyte 1 % (0-0); Monocytes 7 % (0-10); Myelocyte 2 % (0-0); Neutrophil 57 % (42-75); Nucleated RBC 3 % (0); Platelet Count 207 thou/uL (130-400); Polychromasia SLIGHT = 2-3 cells (100X) (0-2/hpf); RBC Distribution Width 12.9 % (11.5-14.5); Red Blood Cell (RBC) Count 2.49 mill/uL (4.70-6.10); White Blood Cell (WBC) Count 14.7 thou/uL (4.8-10.8)
[2020-06-23] MEDS: Morphine 2 MG/ML VIAL SLOW IVP PRN ×4 (01:32→19:34)
[2020-06-23 02:07] LABS: Anion Gap 14 mmol/L (10-20); BUN (Urea Nitrogen) 19 mg/dL (8.9-20.6); Calc. Creatinine Clearance 189 mL/min (70-130); Calcium 8.5 mg/dL (7.8-10.44); Carbon Dioxide 25 mmol/L (22-29); Chloride 112 mmol/L (98-107); Glucose 188 mg/dL (70-105); Magnesium 1.9 mg/dL (1.6-2.6); Phosphorus 3.7 mg/dL (2.3-4.7); Sodium 147 mmol/L (136-145)
[2020-06-23] MEDS ORDERED: levETIRAcetam in NS 1,000 MG in Premix Bag 1 BAG IVPB SCH (05:00)
[2020-06-23 05:04] LABS: Actual Bicarbonate (HCO3a) 30.4 mEq/L (22-28); Base Excess (BEa) 5.4 mEq/L (-2.0 to +3.0); CO2 Tension 47.1 mmHg (35.0-45.0); Calcium, Ionized (arterial) 1.17 mmol/L (1.12-1.30); Carboxyhemoglobin (COHb) 1.4 gm% (0.0-3.0); Hemoglobin (Hb) 8.7 g/dL (14.0-18.0); Potassium - ABG Lab 3.82 mmol/L (3.70-5.30); pH, Arterial 7.43 (7.35-7.45)
[2020-06-23] MEDS: Piperacillin/Tazobactam 3.375 GM in Sodium Chloride 0.9% 100 ML IVPB SCH ×4 (05:09→23:07)
[2020-06-23 05:21] LABS: O2 Tension (PaO2), arterial 53.2 mmHg (80.0-100.0); Puncture Site RRA
[2020-06-23 05:22] LABS: ALV-art Gradient 173.125 mmHg (0-20)
[2020-06-23] MEDS ORDERED: Furosemide 20 MG/2 ML VIAL SLOW IVP SCH (05:30)
[2020-06-23 07:23] LABS: Actual Bicarbonate (HCO3a) 28.6 mEq/L (22-28); Base Excess (BEa) 4.6 mEq/L (-2.0 to +3.0); CO2 Tension 39.9 mmHg (35.0-45.0); Calcium, Ionized (arterial) 1.16 mmol/L (1.12-1.30); Carboxyhemoglobin (COHb) 1.8 gm% (0.0-3.0); Hemoglobin (Hb) 8.9 g/dL (14.0-18.0); O2 Tension (PaO2), arterial 62.4 mmHg (80.0-100.0); Potassium - ABG Lab 3.54 mmol/L (3.70-5.30); pH, Arterial 7.47 (7.35-7.45)
[2020-06-23 07:25] LABS: ALV-art Gradient 172.925 mmHg (0-20); Puncture Site RRA
[2020-06-23] MEDS: Enoxaparin Sodium 40 MG/0.4 ML SYRINGE SC SCH (08:57)
[2020-06-23] MEDS: levETIRAcetam in NS 500 MG in Premix Bag 1 BAG IVPB SCH ×2 (08:57→20:54)
[2020-06-23] MEDS: Micafungin 100 MG in Sodium Chloride 0.9% 100 ML IVPB SCH (08:57)
[2020-06-23] MEDS: Amantadine HCl 100 mg Capsule PO SCH ×2 (08:58→22:29)
[2020-06-23] MEDS: Folic Acid 1 MG TAB PO SCH (08:58)
[2020-06-23] MEDS: Famotidine/PF 20 mg/2ml Vial SLOW IVP SCH (08:58)
[2020-06-23] MEDS: Ascorbic Acid 500 mg Chewable Tablet PO SCH ×2 (08:58→20:51)
[2020-06-23] MEDS: Ferrous Sulfate 325 MG TAB PO SCH ×2 (08:58→20:52)
[2020-06-23] MEDS: Saccharomyces boulardii 250 MG CAP PO SCH (08:58)
[2020-06-23] MEDS: Oxymetazoline HCl 0.05% (30 ML BOT) NS SCH ×2 (08:59→20:58)
[2020-06-23] MEDS: Acetaminophen 650 MG/20.3 ML UDCUP PO PRN (14:47)
[2020-06-23] MEDS: Furosemide 20 MG/2 ML VIAL SLOW IVP SCH ×2 (14:48→20:59)
[2020-06-23 17:12] LABS: Anion Gap 14 mmol/L (10-20); BUN (Urea Nitrogen) 17 mg/dL (8.9-20.6); Calc. Creatinine Clearance 178 mL/min (70-130); Calcium 8.8 mg/dL (7.8-10.44); Carbon Dioxide 29 mmol/L (22-29); Chloride 104 mmol/L (98-107); Glucose 225 mg/dL (70-105); Magnesium 1.8 mg/dL (1.6-2.6); Phosphorus 3.7 mg/dL (2.3-4.7); Potassium 3.8 mmol/L (3.5-5.1); Sodium 143 mmol/L (136-145)
[2020-06-23] MEDS: Acetaminophen W/ Codeine 5 ML UDCUP PO SCH ×2 (17:58→23:08)
[2020-06-23] MEDS ORDERED: Morphine 4 MG/ML VIAL SLOW IVP SCH (20:15)
[2020-06-23] MEDS ORDERED: Lorazepam 2 MG/ML VIAL SLOW IVP PRN (20:16)
[2020-06-23] MEDS ORDERED: Morphine 4 MG/ML VIAL SLOW IVP PRN (20:19)
[2020-06-23] MEDS: Famotidine 20 MG TAB PO SCH (20:52)
[2020-06-24] MEDS: Insulin Regular 300 UNITS/3 ML VIAL SC PRN (00:45)
[2020-06-24] MEDS: Ibuprofen 100 MG/5 ML UDCUP PO SCH ×3 (03:26→18:56)
[2020-06-24 04:35] LABS: Hemoglobin 9.2 g/dL (14.0-18.0); Mean Corpuscular Hemoglobin 31.2 pg (27.0-31.0); Mean Corpuscular Volume 94.4 fL (78.0-98.0); Mean Platelet Volume 9.8 fL (7.4-10.4); Platelet Count 267 thou/uL (130-400); RBC Distribution Width 13.1 % (11.5-14.5); Red Blood Cell (RBC) Count 2.95 mill/uL (4.70-6.10); White Blood Cell (WBC) Count 18.9 thou/uL (4.8-10.8)
[2020-06-24 04:48] LABS: Anion Gap 16 mmol/L (10-20); BUN (Urea Nitrogen) 15 mg/dL (8.9-20.6); Calc. Creatinine Clearance 196 mL/min (70-130); Calcium 8.4 mg/dL (7.8-10.44); Carbon Dioxide 25 mmol/L (22-29); Chloride 103 mmol/L (98-107); Glucose 198 mg/dL (70-105); Magnesium 1.8 mg/dL (1.6-2.6); Potassium 4.2 mmol/L (3.5-5.1); Sodium 140 mmol/L (136-145)
[2020-06-24 04:59] LABS: Lymphocytes 11 % (21-51); MDiff Complete? YES; Metamyelocyte 1 % (0-0); Monocytes 3 % (0-10); Neutrophil 85 % (42-75); Nucleated RBC 1 % (0); Platelet Morphology Comment Appears Adequate
[2020-06-24] MEDS: Furosemide 20 MG/2 ML VIAL SLOW IVP SCH ×3 (06:00→18:55)
[2020-06-24] MEDS: Piperacillin/Tazobactam 3.375 GM in Sodium Chloride 0.9% 100 ML IVPB SCH ×2 (06:01→13:02)
[2020-06-24] MEDS: Acetaminophen W/ Codeine 5 ML UDCUP PO SCH ×4 (06:33→23:20)
[2020-06-24] MEDS ORDERED: Magnesium Sulfate 2 GM in Sodium Chloride 0.9% 100 ML IVPB SCH (09:00)
[2020-06-24] MEDS ORDERED: Magnesium Sulfate 4 GM in Sodium Chloride 0.9% 250 ML 250 ML IVPB SCH (09:00)
[2020-06-24] MEDS ORDERED: Vecuronium 10 MG VIAL IV SCH (10:15)
[2020-06-24] MEDS ORDERED: Lidocaine 1% w/Epinephrine 1:100K 20 ML VIAL NERVE BLCK SCH (10:15)
[2020-06-24] MEDS ORDERED: Midazolam HCl 2 mg/2 ml Vial SLOW IVP SCH ×2 (10:15→11:45)
[2020-06-24] MEDS ORDERED: Fentanyl 100 MCG/2 ML VIAL SLOW IVP SCH ×2 (10:15→11:45)
[2020-06-24] MEDS: Oxymetazoline HCl 0.05% (30 ML BOT) NS SCH ×2 (10:20→21:33)
[2020-06-24] MEDS: Micafungin 100 MG in Sodium Chloride 0.9% 100 ML IVPB SCH (10:28)
[2020-06-24] MEDS: levETIRAcetam in NS 500 MG in Premix Bag 1 BAG IVPB SCH ×2 (10:29→21:31)
[2020-06-24] MEDS ORDERED: Sterile Water 10 ML ONE (10:49)
[2020-06-24] MEDS ORDERED: Lidocaine 1% w/Epinephrine 1:100K 20 ML VIAL ONE (10:51)
[2020-06-24] MEDS ORDERED: CEFAZOLIN 2 GM in Premix Bag 1 BAG IVPB SCH (11:45)
[2020-06-24] MEDS: Amantadine HCl 100 mg Capsule PO SCH ×2 (12:39→21:32)
[2020-06-24] MEDS: Ferrous Sulfate 325 MG TAB PO SCH ×2 (12:40→21:32)
[2020-06-24] MEDS: Famotidine 20 MG TAB PO SCH ×2 (12:40→21:32)
[2020-06-24] MEDS: Ascorbic Acid 500 mg Chewable Tablet PO SCH ×2 (12:40→21:32)
[2020-06-24] MEDS: Folic Acid 1 MG TAB PO SCH (12:41)
[2020-06-24] MEDS: Saccharomyces boulardii 250 MG CAP PO SCH (12:41)
[2020-06-24] MEDS: Enoxaparin Sodium 40 MG/0.4 ML SYRINGE SC SCH (12:42)
[2020-06-24] MEDS: MEROPENEM 1 GM/50 ML 1 GM in Premix Bag 1 BAG IVPB SCH ×2 (15:24→23:00)
[2020-06-25] MEDS: Ibuprofen 100 MG/5 ML UDCUP PO SCH ×3 (02:41→18:36)
[2020-06-25] MEDS: Furosemide 20 MG/2 ML VIAL SLOW IVP SCH (02:43)
[2020-06-25 04:44] LABS: Band 25 % (5-11); Eosinophils 1 % (0-10); Hemoglobin 9.1 g/dL (14.0-18.0); Lymphocytes 8 % (21-51); MDiff Complete? YES; Mean Corpuscular HGB CONC 32.6 g/dL (32.0-36.0); Mean Corpuscular Hemoglobin 31.1 pg (27.0-31.0); Mean Corpuscular Volume 95.3 fL (78.0-98.0); Mean Platelet Volume 9.5 fL (7.4-10.4); Metamyelocyte 2 % (0-0); Monocytes 1 % (0-10); Neutrophil 63 % (42-75); Platelet Count 282 thou/uL (130-400); Platelet Morphology Comment Appears Adequate; RBC Distribution Width 13.1 % (11.5-14.5); Red Blood Cell (RBC) Count 2.93 mill/uL (4.70-6.10)
[2020-06-25 04:44] LABS: Anion Gap 13 mmol/L (10-20); BUN (Urea Nitrogen) 21 mg/dL (8.9-20.6); Calc. Creatinine Clearance 179 mL/min (70-130); Calcium 8.5 mg/dL (7.8-10.44); Carbon Dioxide 28 mmol/L (22-29); Chloride 103 mmol/L (98-107); Glucose 123 mg/dL (70-105); Magnesium 2.3 mg/dL (1.6-2.6); Phosphorus 3.3 mg/dL (2.3-4.7); Potassium 4.1 mmol/L (3.5-5.1); Sodium 140 mmol/L (136-145)
[2020-06-25] MEDS: MEROPENEM 1 GM/50 ML 1 GM in Premix Bag 1 BAG IVPB SCH ×3 (09:52→22:05)
[2020-06-25] MEDS: Enoxaparin Sodium 40 MG/0.4 ML SYRINGE SC SCH (09:59)
[2020-06-25] MEDS: Folic Acid 1 MG TAB PO SCH (10:01)
[2020-06-25] MEDS: Famotidine 20 MG TAB PO SCH ×2 (10:01→20:28)
[2020-06-25] MEDS: Saccharomyces boulardii 250 MG CAP PO SCH (10:02)
[2020-06-25] MEDS: Amantadine HCl 100 mg Capsule PO SCH ×2 (10:02→20:29)
[2020-06-25] MEDS: Ferrous Sulfate 325 MG TAB PO SCH ×2 (10:02→20:28)
[2020-06-25] MEDS: Ascorbic Acid 500 mg Chewable Tablet PO SCH ×2 (10:02→20:29)
[2020-06-25 10:15] LABS: Actual Bicarbonate (HCO3a) 27.5 mEq/L (22-28); Base Excess (BEa) 3.4 mEq/L (-2.0 to +3.0); CO2 Tension 39.7 mmHg (35.0-45.0); Calcium, Ionized (arterial) 1.14 mmol/L (1.12-1.30); Carboxyhemoglobin (COHb) 0.8 gm% (0.0-3.0); Hemoglobin (Hb) 10.2 g/dL (14.0-18.0); O2 Tension (PaO2), arterial 85.4 mmHg (80.0-100.0); Potassium - ABG Lab 4.33 mmol/L (3.70-5.30); pH, Arterial 7.46 (7.35-7.45)
[2020-06-25 10:17] LABS: ALV-art Gradient 150.175 mmHg (0-20); Puncture Site RRA
[2020-06-25] MEDS: Acetaminophen W/ Codeine 5 ML UDCUP PO SCH ×4 (10:30→23:42)
[2020-06-25] MEDS: Micafungin 100 MG in Sodium Chloride 0.9% 100 ML IVPB SCH (10:33)
[2020-06-25] MEDS: levETIRAcetam in NS 500 MG in Premix Bag 1 BAG IVPB SCH ×2 (10:34→20:27)
[2020-06-25] MEDS: Oxymetazoline HCl 0.05% (30 ML BOT) NS SCH ×2 (11:47→20:32)
[2020-06-26] MEDS: Ibuprofen 100 MG/5 ML UDCUP PO SCH ×3 (02:18→18:12)
[2020-06-26] MEDS: Acetaminophen W/ Codeine 5 ML UDCUP PO SCH ×2 (05:18→12:18)
[2020-06-26] MEDS: MEROPENEM 1 GM/50 ML 1 GM in Premix Bag 1 BAG IVPB SCH ×3 (05:21→21:06)
[2020-06-26] MEDS: Micafungin 100 MG in Sodium Chloride 0.9% 100 ML IVPB SCH (09:36)
[2020-06-26] MEDS: Famotidine 20 MG TAB PO SCH ×2 (09:37→20:15)
[2020-06-26] MEDS: levETIRAcetam in NS 500 MG in Premix Bag 1 BAG IVPB SCH ×2 (09:37→20:15)
[2020-06-26] MEDS: Ascorbic Acid 500 mg Chewable Tablet PO SCH ×2 (09:37→20:15)
[2020-06-26] MEDS: Ferrous Sulfate 325 MG TAB PO SCH ×2 (09:37→20:15)
[2020-06-26] MEDS: Amantadine HCl 100 mg Capsule PO SCH ×2 (09:37→20:15)
[2020-06-26] MEDS: Folic Acid 1 MG TAB PO SCH (09:37)
[2020-06-26] MEDS: Enoxaparin Sodium 40 MG/0.4 ML SYRINGE SC SCH (09:37)
[2020-06-26] MEDS: Saccharomyces boulardii 250 MG CAP PO SCH (09:37)
[2020-06-26] MEDS: Oxymetazoline HCl 0.05% (30 ML BOT) NS SCH ×2 (09:39→20:16)
[2020-06-26] MEDS: Insulin Regular 300 UNITS/3 ML VIAL SC PRN (16:53)
[2020-06-26] MEDS: Acetaminophen 500 MG TAB PO SCH ×2 (18:12→23:09)
[2020-06-27] MEDS: Ibuprofen 100 MG/5 ML UDCUP PO SCH ×3 (01:05→18:00)
[2020-06-27 04:05] LABS: #Eosinphils 0.1 thou/uL (0.0-0.7); #Lymphocytes 1.4 thou/uL (1.20-3.40); #Monocytes 0.6 thou/uL (0.11-0.59); #Neutrophils 13.2 thou/uL (1.40-6.50); %Basophils 0.2 % (0.0-1.0); %Eosinophils 0.9 % (0.0-10.0); %Lymphocytes 9.4 % (21.0-51.0); %Monocytes 3.8 % (0.0-10.0); %Neutrophils 85.8 % (42.0-75.0); Hemoglobin 7.8 g/dL (14.0-18.0); Mean Corpuscular HGB CONC 32.5 g/dL (32.0-36.0); Mean Corpuscular Hemoglobin 31.1 pg (27.0-31.0); Mean Corpuscular Volume 95.7 fL (78.0-98.0); Mean Platelet Volume 9.2 fL (7.4-10.4); Platelet Count 380 thou/uL (130-400); RBC Distribution Width 13.1 % (11.5-14.5); Red Blood Cell (RBC) Count 2.52 mill/uL (4.70-6.10); White Blood Cell (WBC) Count 15.4 thou/uL (4.8-10.8)
[2020-06-27 04:24] LABS: Anion Gap 11 mmol/L (10-20); BUN (Urea Nitrogen) 23 mg/dL (8.9-20.6); Calc. Creatinine Clearance 165 mL/min (70-130); Calcium 8.5 mg/dL (7.8-10.44); Carbon Dioxide 28 mmol/L (22-29); Chloride 109 mmol/L (98-107); Glucose 189 mg/dL (70-105); Magnesium 2.1 mg/dL (1.6-2.6); Phosphorus 2.9 mg/dL (2.3-4.7); Sodium 144 mmol/L (136-145)
[2020-06-27] MEDS: Acetaminophen 500 MG TAB PO SCH ×4 (05:07→23:05)
[2020-06-27] MEDS: MEROPENEM 1 GM/50 ML 1 GM in Premix Bag 1 BAG IVPB SCH ×2 (05:07→15:17)
[2020-06-27] MEDS: Insulin Regular 300 UNITS/3 ML VIAL SC PRN ×2 (05:08→10:56)
[2020-06-27 07:25] LABS: Actual Bicarbonate (HCO3a) 26.1 mEq/L (22-28); Base Excess (BEa) 2.1 mEq/L (-2.0 to +3.0); CO2 Tension 37.5 mmHg (35.0-45.0); Calcium, Ionized (arterial) 1.18 mmol/L (1.12-1.30); Carboxyhemoglobin (COHb) 1.1 gm% (0.0-3.0); O2 Tension (PaO2), arterial 110.7 mmHg (80.0-100.0); Potassium - ABG Lab 4.28 mmol/L (3.70-5.30); pH, Arterial 7.46 (7.35-7.45)
[2020-06-27 07:41] LABS: Puncture Site RRA
[2020-06-27 07:42] LABS: ALV-art Gradient 127.625 mmHg (0-20)
[2020-06-27] MEDS: Micafungin 100 MG in Sodium Chloride 0.9% 100 ML IVPB SCH (09:19)
[2020-06-27] MEDS: Enoxaparin Sodium 40 MG/0.4 ML SYRINGE SC SCH (09:19)
[2020-06-27] MEDS: levETIRAcetam in NS 500 MG in Premix Bag 1 BAG IVPB SCH ×2 (09:46→20:30)
[2020-06-27] MEDS: Ferrous Sulfate 325 MG TAB PO SCH ×2 (09:47→20:30)
[2020-06-27] MEDS: Ascorbic Acid 500 mg Chewable Tablet PO SCH ×2 (09:47→20:29)
[2020-06-27] MEDS: Amantadine HCl 100 mg Capsule PO SCH ×2 (09:47→20:29)
[2020-06-27] MEDS: Saccharomyces boulardii 250 MG CAP PO SCH (09:47)
[2020-06-27] MEDS: Folic Acid 1 MG TAB PO SCH (09:48)
[2020-06-27] MEDS: Famotidine 20 MG TAB PO SCH ×2 (09:48→20:29)
[2020-06-27] MEDS: Oxymetazoline HCl 0.05% (30 ML BOT) NS SCH ×2 (10:36→20:30)
[2020-06-27] MEDS: Ciprofloxacin 500 MG TAB PO SCH (20:29)
[2020-06-28] MEDS: Ibuprofen 100 MG/5 ML UDCUP PO SCH ×3 (01:04→18:20)
[2020-06-28] MEDS: Insulin Regular 300 UNITS/3 ML VIAL SC PRN ×2 (03:56→09:52)
[2020-06-28] MEDS: Acetaminophen 500 MG TAB PO SCH ×3 (05:07→18:19)
[2020-06-28] MEDS: Ciprofloxacin 500 MG TAB PO SCH ×2 (05:07→21:16)
[2020-06-28] MEDS: Folic Acid 1 MG TAB PO SCH (07:46)
[2020-06-28] MEDS: Saccharomyces boulardii 250 MG CAP PO SCH (07:46)
[2020-06-28] MEDS: Ascorbic Acid 500 mg Chewable Tablet PO SCH ×2 (07:46→21:16)
[2020-06-28] MEDS: Famotidine 20 MG TAB PO SCH ×2 (07:46→21:15)
[2020-06-28] MEDS: Ferrous Sulfate 325 MG TAB PO SCH ×2 (07:46→21:16)
[2020-06-28] MEDS: levETIRAcetam in NS 500 MG in Premix Bag 1 BAG IVPB SCH ×2 (08:18→21:16)
[2020-06-28] MEDS: Oxymetazoline HCl 0.05% (30 ML BOT) NS SCH ×2 (08:19→21:44)
[2020-06-28] MEDS: Micafungin 100 MG in Sodium Chloride 0.9% 100 ML IVPB SCH (09:43)
[2020-06-28] MEDS: Amantadine HCl 100 mg Capsule PO SCH ×2 (09:45→21:43)
[2020-06-28] MEDS: Enoxaparin Sodium 40 MG/0.4 ML SYRINGE SC SCH (09:45)
[2020-06-28] MEDS ORDERED: GUAIFENESIN SF SOLN 200 MG/10 ML UDCUP PER TUBE PRN (13:08)
[2020-06-28] MEDS ORDERED: GUAIFENESIN SF SOLN 200 MG/10 ML UDCUP PER TUBE SCH (13:15)
[2020-06-28] MEDS: Morphine 2 MG/ML VIAL SLOW IVP PRN (18:19)
[2020-06-29] MEDS: Acetaminophen 500 MG TAB PO SCH ×5 (01:10→22:01)
[2020-06-29] MEDS: Ibuprofen 100 MG/5 ML UDCUP PO SCH ×4 (03:43→22:01)
[2020-06-29 03:58] LABS: Band 4 % (5-11); Hemoglobin 9.3 g/dL (14.0-18.0); Hypochromia SLIGHT = 6-15 cells (100X) (0-5/hpf); Lymphocytes 8 % (21-51); MDiff Complete? YES; Mean Corpuscular HGB CONC 32.5 g/dL (32.0-36.0); Mean Corpuscular Hemoglobin 30.8 pg (27.0-31.0); Mean Corpuscular Volume 94.9 fL (78.0-98.0); Mean Platelet Volume 8.5 fL (7.4-10.4); Monocytes 2 % (0-10); Neutrophil 86 % (42-75); Platelet Count 631 thou/uL (130-400); Platelet Morphology Comment Appears Increased; RBC Distribution Width 13.2 % (11.5-14.5); Red Blood Cell (RBC) Count 3.02 mill/uL (4.70-6.10); White Blood Cell (WBC) Count 15.4 thou/uL (4.8-10.8)
[2020-06-29 04:01] LABS: Anion Gap 11 mmol/L (10-20); BUN (Urea Nitrogen) 20 mg/dL (8.9-20.6); Calc. Creatinine Clearance 180 mL/min (70-130); Calcium 8.6 mg/dL (7.8-10.44); Carbon Dioxide 25 mmol/L (22-29); Chloride 110 mmol/L (98-107); Glucose 175 mg/dL (70-105); Magnesium 1.9 mg/dL (1.6-2.6); Phosphorus 3.1 mg/dL (2.3-4.7); Potassium 3.9 mmol/L (3.5-5.1); Sodium 142 mmol/L (136-145)
[2020-06-29] MEDS: Ciprofloxacin 500 MG TAB PO SCH ×3 (05:41→22:01)
[2020-06-29] MEDS: Folic Acid 1 MG TAB PO SCH (09:27)
[2020-06-29] MEDS: Amantadine HCl 100 mg Capsule PO SCH ×3 (09:27→22:01)
[2020-06-29] MEDS: Ascorbic Acid 500 mg Chewable Tablet PO SCH ×3 (09:27→22:02)
[2020-06-29] MEDS: Famotidine 20 MG TAB PO SCH ×3 (09:27→22:02)
[2020-06-29] MEDS: Enoxaparin Sodium 40 MG/0.4 ML SYRINGE SC SCH (09:27)
[2020-06-29] MEDS: Saccharomyces boulardii 250 MG CAP PO SCH (09:27)
[2020-06-29] MEDS: Ferrous Sulfate 325 MG TAB PO SCH ×3 (09:27→22:02)
[2020-06-29] MEDS: Oxymetazoline HCl 0.05% (30 ML BOT) NS SCH ×2 (09:28→21:40)
[2020-06-29] MEDS: levETIRAcetam in NS 500 MG in Premix Bag 1 BAG IVPB SCH ×2 (09:28→21:39)
[2020-06-29] MEDS: Micafungin 100 MG in Sodium Chloride 0.9% 100 ML IVPB SCH (09:28)
[2020-06-30] MEDS: Acetaminophen 500 MG TAB PO SCH ×4 (02:23→17:28)
[2020-06-30] MEDS: Ibuprofen 100 MG/5 ML UDCUP PO SCH ×3 (02:23→17:28)
[2020-06-30] MEDS: Meropenem 2 GM, Admixture Fee 1 EACH in Sodium Chloride 0.9% 100 ML IVPB SCH ×2 (03:25→11:16)
[2020-06-30] MEDS: Potassium Chloride 10 MEQ in Dextrose 5 % And 0.9 % NaCl 1,000 ML IV SCH ×2 (03:25→17:40)
[2020-06-30] MEDS: Ciprofloxacin 500 MG TAB PO SCH (06:17)
[2020-06-30] MEDS: Ferrous Sulfate 325 MG TAB PO SCH ×2 (10:36→21:53)
[2020-06-30] MEDS: Famotidine 20 MG TAB PO SCH (10:36)
[2020-06-30] MEDS: Folic Acid 1 MG TAB PO SCH (10:36)
[2020-06-30] MEDS: Ascorbic Acid 500 mg Chewable Tablet PO SCH ×2 (10:36→21:54)
[2020-06-30] MEDS: Saccharomyces boulardii 250 MG CAP PO SCH (10:36)
[2020-06-30] MEDS: levETIRAcetam in NS 500 MG in Premix Bag 1 BAG IVPB SCH ×2 (10:37→21:52)
[2020-06-30] MEDS: Oxymetazoline HCl 0.05% (30 ML BOT) NS SCH ×2 (10:37→21:55)
[2020-06-30] MEDS: Enoxaparin Sodium 40 MG/0.4 ML SYRINGE SC SCH (10:37)
[2020-06-30] MEDS: Amantadine HCl 100 mg Capsule PO SCH ×2 (10:46→21:52)
[2020-06-30] MEDS ORDERED: GASTROGRAFIN 30 ML BOT ONE (11:54)
[2020-06-30 12:39] LABS: Hemoglobin 10.7 g/dL (14.0-18.0); Mean Corpuscular HGB CONC 32.3 g/dL (32.0-36.0); Mean Corpuscular Hemoglobin 30.4 pg (27.0-31.0); Mean Corpuscular Volume 94.1 fL (78.0-98.0); Mean Platelet Volume 7.6 fL (7.4-10.4); Platelet Count 830 thou/uL (130-400); RBC Distribution Width 13.4 % (11.5-14.5); Red Blood Cell (RBC) Count 3.52 mill/uL (4.70-6.10)
[2020-06-30 12:54] LABS: Phosphorus 3.3 mg/dL (2.3-4.7)
[2020-06-30 13:00] LABS: Anion Gap 16 mmol/L (10-20); BUN (Urea Nitrogen) 21 mg/dL (8.9-20.6); Calc. Creatinine Clearance 168 mL/min (70-130); Calcium 9.3 mg/dL (7.8-10.44); Carbon Dioxide 19 mmol/L (22-29); Chloride 106 mmol/L (98-107); Glucose 160 mg/dL (70-105); Potassium 3.9 mmol/L (3.5-5.1); Sodium 137 mmol/L (136-145)
[2020-06-30 13:06] LABS: Anisocytosis SLIGHT = 6-15 cells (100X) (0-5/hpf); Band 4 % (5-11); Lymphocytes 10 % (21-51); MDiff Complete? YES; Neutrophil 86 % (42-75); Platelet Morphology Comment Appears Increased
[2020-06-30] MEDS ORDERED: Aspirin 81 mg Enteric Coated Tablet PO SCH (21:00)
[2020-06-30] MEDS ORDERED: Aspirin 300 MG Suppository PR SCH (21:00)
[2020-06-30] MEDS: Famotidine/PF 20 mg/2ml Vial SLOW IVP SCH (21:54)
[2020-06-30 22:04] LABS: SARS-CoV-2 PCR by NAA Not Detected (NotDetected)
[2020-06-30] MEDS: Morphine 2 MG/ML VIAL SLOW IVP PRN (22:14)
[2020-07-01] MEDS: Acetaminophen 500 MG TAB PO SCH ×4 (00:44→17:34)
[2020-07-01] MEDS: Ibuprofen 100 MG/5 ML UDCUP PO SCH ×3 (02:19→17:34)
[2020-07-01] MEDS: Morphine 2 MG/ML VIAL SLOW IVP PRN (02:23)
[2020-07-01 03:48] LABS: #Eosinphils 0.2 thou/uL (0.0-0.7); #Lymphocytes 1.5 thou/uL (1.20-3.40); #Monocytes 0.8 thou/uL (0.11-0.59); #Neutrophils 13.3 thou/uL (1.40-6.50); %Basophils 0.3 % (0.0-1.0); %Eosinophils 1.2 % (0.0-10.0); %Lymphocytes 9.6 % (21.0-51.0); %Monocytes 4.8 % (0.0-10.0); %Neutrophils 84.2 % (42.0-75.0); Mean Corpuscular HGB CONC 32.8 g/dL (32.0-36.0); Mean Corpuscular Volume 94.5 fL (78.0-98.0); Mean Platelet Volume 7.8 fL (7.4-10.4); Platelet Count 770 thou/uL (130-400); RBC Distribution Width 13.5 % (11.5-14.5); Red Blood Cell (RBC) Count 3.21 mill/uL (4.70-6.10); White Blood Cell (WBC) Count 15.8 thou/uL (4.8-10.8)
[2020-07-01] MEDS: Potassium Chloride 10 MEQ in Dextrose 5 % And 0.9 % NaCl 1,000 ML IV SCH ×2 (07:23→17:34)
[2020-07-01] MEDS: Saccharomyces boulardii 250 MG CAP PO SCH (08:50)
[2020-07-01] MEDS: Amantadine HCl 100 mg Capsule PO SCH ×2 (08:50→21:01)
[2020-07-01] MEDS: levETIRAcetam in NS 500 MG in Premix Bag 1 BAG IVPB SCH ×2 (08:50→21:01)
[2020-07-01] MEDS: Ferrous Sulfate 325 MG TAB PO SCH ×2 (08:50→21:01)
[2020-07-01] MEDS: Folic Acid 1 MG TAB PO SCH (08:50)
[2020-07-01] MEDS: Enoxaparin Sodium 40 MG/0.4 ML SYRINGE SC SCH (08:50)
[2020-07-01] MEDS: Ascorbic Acid 500 mg Chewable Tablet PO SCH ×2 (08:50→21:01)
[2020-07-01] MEDS: Famotidine/PF 20 mg/2ml Vial SLOW IVP SCH ×2 (08:50→21:01)
[2020-07-01] MEDS: Oxymetazoline HCl 0.05% (30 ML BOT) NS SCH ×2 (08:51→21:02)
[2020-07-01] MEDS ORDERED: Famotidine/PF 20 mg/2ml Vial SLOW IVP SCH (09:00)
[2020-07-02] MEDS: Potassium Chloride 10 MEQ in Dextrose 5 % And 0.9 % NaCl 1,000 ML IV SCH ×2 (01:27→16:28)
[2020-07-02] MEDS: Acetaminophen 500 MG TAB PO SCH ×4 (01:27→18:58)
[2020-07-02] MEDS: Ibuprofen 100 MG/5 ML UDCUP PO SCH ×3 (01:29→18:46)
[2020-07-02] MEDS ORDERED: Scopolamine 1.5 mg/72 hour Patch TD SCH (07:00)
[2020-07-02] MEDS: levETIRAcetam in NS 500 MG in Premix Bag 1 BAG IVPB SCH ×2 (08:47→22:44)
[2020-07-02] MEDS: Famotidine/PF 20 mg/2ml Vial SLOW IVP SCH ×2 (08:50→22:21)
[2020-07-02] MEDS: Folic Acid 1 MG TAB PO SCH (08:51)
[2020-07-02] MEDS: Saccharomyces boulardii 250 MG CAP PO SCH (08:51)
[2020-07-02] MEDS: Enoxaparin Sodium 40 MG/0.4 ML SYRINGE SC SCH (08:51)
[2020-07-02] MEDS: Amantadine HCl 100 mg Capsule PO SCH ×2 (08:51→22:21)
[2020-07-02] MEDS: Ascorbic Acid 500 mg Chewable Tablet PO SCH ×2 (08:51→22:21)
[2020-07-02] MEDS: Ferrous Sulfate 325 MG TAB PO SCH ×2 (08:51→22:43)
[2020-07-02] MEDS: Oxymetazoline HCl 0.05% (30 ML BOT) NS SCH (08:52)
[2020-07-02] MEDS ORDERED: Iopamidol 370 76% 50 ML VIAL FS ONE (12:27)
[2020-07-02] MEDS ORDERED: Iopamidol-370 76% 500 ML 1 ML ONE (12:27)
[2020-07-03] MEDS: Potassium Chloride 10 MEQ in Dextrose 5 % And 0.9 % NaCl 1,000 ML IV SCH ×3 (04:46→18:53)
[2020-07-03] MEDS: Acetaminophen 500 MG TAB PO SCH ×4 (05:06→18:53)
[2020-07-03] MEDS: Ibuprofen 100 MG/5 ML UDCUP PO SCH ×3 (05:08→18:53)
[2020-07-03] MEDS: levETIRAcetam in NS 500 MG in Premix Bag 1 BAG IVPB SCH ×2 (11:06→21:25)
[2020-07-03] MEDS: Enoxaparin Sodium 40 MG/0.4 ML SYRINGE SC SCH (11:07)
[2020-07-03] MEDS: Folic Acid 1 MG TAB PO SCH (11:07)
[2020-07-03] MEDS: Ascorbic Acid 500 mg Chewable Tablet PO SCH ×2 (11:07→21:25)
[2020-07-03] MEDS: Ferrous Sulfate 325 MG TAB PO SCH ×2 (11:07→21:32)
[2020-07-03] MEDS: Amantadine HCl 100 mg Capsule PO SCH ×2 (11:07→21:25)
[2020-07-03] MEDS: Saccharomyces boulardii 250 MG CAP PO SCH (11:07)
[2020-07-03] MEDS: Famotidine/PF 20 mg/2ml Vial SLOW IVP SCH ×2 (11:07→21:25)
[2020-07-03] MEDS: Oxymetazoline HCl 0.05% (30 ML BOT) NS SCH ×2 (11:46→21:17)
[2020-07-04] MEDS: Oxymetazoline HCl 0.05% (30 ML BOT) NS SCH ×3 (05:33→22:29)
[2020-07-04] MEDS: Acetaminophen 500 MG TAB PO SCH ×3 (05:39→13:31)
[2020-07-04] MEDS: Ibuprofen 100 MG/5 ML UDCUP PO SCH ×3 (05:40→17:42)
[2020-07-04] MEDS: Potassium Chloride 10 MEQ in Dextrose 5 % And 0.9 % NaCl 1,000 ML IV SCH ×2 (07:00→23:45)
[2020-07-04] MEDS: Famotidine/PF 20 mg/2ml Vial SLOW IVP SCH ×2 (09:30→21:46)
[2020-07-04] MEDS: Enoxaparin Sodium 40 MG/0.4 ML SYRINGE SC SCH (09:30)
[2020-07-04] MEDS: Ascorbic Acid 500 mg Chewable Tablet PO SCH ×2 (09:30→22:32)
[2020-07-04] MEDS: Amantadine HCl 100 mg Capsule PO SCH ×2 (09:30→21:46)
[2020-07-04] MEDS: Saccharomyces boulardii 250 MG CAP PO SCH (09:31)
[2020-07-04] MEDS: Ferrous Sulfate 325 MG TAB PO SCH (09:32)
[2020-07-04] MEDS: Folic Acid 1 MG TAB PO SCH (09:32)
[2020-07-04] MEDS: levETIRAcetam in NS 500 MG in Premix Bag 1 BAG IVPB SCH ×2 (09:33→21:47)
[2020-07-04] MEDS: Scopolamine 1.5 mg/72 hour Patch TD SCH (15:08)
[2020-07-04] MEDS: Acetaminophen 650 MG/20.3 ML UDCUP PO SCH (17:39)
[2020-07-05] MEDS: Acetaminophen 650 MG/20.3 ML UDCUP PO SCH ×4 (04:16→19:18)
[2020-07-05] MEDS: Ibuprofen 100 MG/5 ML UDCUP PO SCH ×3 (04:16→19:19)
[2020-07-05] MEDS: Saccharomyces boulardii 250 MG CAP PO SCH (10:13)
[2020-07-05] MEDS: Folic Acid 1 MG TAB PO SCH (10:13)
[2020-07-05] MEDS: Amantadine HCl 100 mg Capsule PO SCH ×2 (10:13→20:58)
[2020-07-05] MEDS: Enoxaparin Sodium 40 MG/0.4 ML SYRINGE SC SCH (10:13)
[2020-07-05] MEDS: Ascorbic Acid 500 mg Chewable Tablet PO SCH ×2 (10:13→20:58)
[2020-07-05] MEDS: Famotidine/PF 20 mg/2ml Vial SLOW IVP SCH ×2 (10:14→20:56)
[2020-07-05] MEDS: levETIRAcetam in NS 500 MG in Premix Bag 1 BAG IVPB SCH ×2 (10:31→20:57)
[2020-07-05] MEDS: Oxymetazoline HCl 0.05% (30 ML BOT) NS SCH ×2 (13:34→20:58)
[2020-07-05] MEDS: Potassium Chloride 10 MEQ in Dextrose 5 % And 0.9 % NaCl 1,000 ML IV SCH ×3 (14:43→19:14)
[2020-07-05] MEDS: Morphine 2 MG/ML VIAL SLOW IVP PRN (16:01)
[2020-07-06] MEDS: Ibuprofen 100 MG/5 ML UDCUP PO SCH ×3 (00:46→18:01)
[2020-07-06] MEDS: Acetaminophen 650 MG/20.3 ML UDCUP PO SCH ×5 (00:46→23:30)
[2020-07-06] MEDS: Potassium Chloride 10 MEQ in Dextrose 5 % And 0.9 % NaCl 1,000 ML IV SCH ×3 (01:03→23:19)
[2020-07-06] MEDS: Ascorbic Acid 500 mg Chewable Tablet PO SCH ×2 (08:59→20:00)
[2020-07-06] MEDS: Enoxaparin Sodium 40 MG/0.4 ML SYRINGE SC SCH (08:59)
[2020-07-06] MEDS: Folic Acid 1 MG TAB PO SCH (08:59)
[2020-07-06] MEDS: Famotidine/PF 20 mg/2ml Vial SLOW IVP SCH ×2 (08:59→20:00)
[2020-07-06] MEDS: Amantadine HCl 100 mg Capsule PO SCH ×2 (08:59→20:00)
[2020-07-06] MEDS: levETIRAcetam in NS 500 MG in Premix Bag 1 BAG IVPB SCH ×2 (09:00→20:00)
[2020-07-06] MEDS: Oxymetazoline HCl 0.05% (30 ML BOT) NS SCH ×3 (10:29→23:30)
[2020-07-07] MEDS: Ibuprofen 100 MG/5 ML UDCUP PO SCH ×3 (03:50→17:47)
[2020-07-07] MEDS: Acetaminophen 650 MG/20.3 ML UDCUP PO SCH ×3 (06:24→17:35)
[2020-07-07] MEDS: levETIRAcetam in NS 500 MG in Premix Bag 1 BAG IVPB SCH (09:43)
[2020-07-07] MEDS: Enoxaparin Sodium 40 MG/0.4 ML SYRINGE SC SCH (09:44)
[2020-07-07] MEDS: levETIRAcetam 500 mg/5 ml Oral Solution PER TUBE SCH ×2 (09:44→20:42)
[2020-07-07] MEDS: Oxymetazoline HCl 0.05% (30 ML BOT) NS SCH ×2 (09:45→22:34)
[2020-07-07] MEDS: Folic Acid 1 MG TAB PO SCH (09:46)
[2020-07-07] MEDS: Famotidine/PF 20 mg/2ml Vial SLOW IVP SCH (09:46)
[2020-07-07] MEDS: Ascorbic Acid 500 mg Chewable Tablet PO SCH ×2 (09:46→20:42)
[2020-07-07] MEDS: Amantadine HCl 100 mg Capsule PO SCH ×2 (09:47→20:42)
[2020-07-07] MEDS: Famotidine 20 MG TAB PER TUBE SCH ×2 (09:47→20:42)
[2020-07-07] MEDS: Potassium Chloride 10 MEQ in Dextrose 5 % And 0.9 % NaCl 1,000 ML IV SCH ×2 (10:46→22:34)
[2020-07-07] MEDS: Scopolamine 1.5 mg/72 hour Patch TD SCH (16:21)
[2020-07-08] MEDS: Ibuprofen 100 MG/5 ML UDCUP PO SCH ×3 (02:31→17:25)
[2020-07-08] MEDS: Acetaminophen 650 MG/20.3 ML UDCUP PO SCH ×4 (02:31→17:25)
[2020-07-08] MEDS: Potassium Chloride 10 MEQ in Dextrose 5 % And 0.9 % NaCl 1,000 ML IV SCH (06:43)
[2020-07-08] MEDS: levETIRAcetam 500 mg/5 ml Oral Solution PER TUBE SCH ×2 (10:21→20:44)
[2020-07-08] MEDS: Famotidine 20 MG TAB PER TUBE SCH ×2 (10:21→20:44)
[2020-07-08] MEDS: Ascorbic Acid 500 mg Chewable Tablet PO SCH ×2 (10:22→20:44)
[2020-07-08] MEDS: Amantadine HCl 100 mg Capsule PO SCH ×2 (10:22→20:44)
[2020-07-08] MEDS: Folic Acid 1 MG TAB PO SCH (10:22)
[2020-07-08] MEDS: Enoxaparin Sodium 40 MG/0.4 ML SYRINGE SC SCH (10:22)
[2020-07-08] MEDS: Oxymetazoline HCl 0.05% (30 ML BOT) NS SCH ×2 (10:23→20:44)
[2020-07-08] MEDS: Insulin Regular 300 UNITS/3 ML VIAL SC PRN (11:58)
[2020-07-08 13:46] VITALS: BMI 23.8
[2020-07-09] MEDS: Ibuprofen 100 MG/5 ML UDCUP PO SCH ×3 (01:12→18:33)
[2020-07-09] MEDS: Acetaminophen 650 MG/20.3 ML UDCUP PO SCH ×4 (01:12→18:27)
[2020-07-09] MEDS: Oxymetazoline HCl 0.05% (30 ML BOT) NS SCH ×2 (09:38→20:10)
[2020-07-09] MEDS: Ascorbic Acid 500 mg Chewable Tablet PO SCH ×2 (09:38→20:11)
[2020-07-09] MEDS: Amantadine HCl 100 mg Capsule PO SCH ×2 (09:38→20:10)
[2020-07-09] MEDS: Famotidine 20 MG TAB PER TUBE SCH ×2 (09:38→20:10)
[2020-07-09] MEDS: Enoxaparin Sodium 40 MG/0.4 ML SYRINGE SC SCH (09:38)
[2020-07-09] MEDS: levETIRAcetam 500 mg/5 ml Oral Solution PER TUBE SCH ×2 (09:38→20:10)
[2020-07-09] MEDS: Folic Acid 1 MG TAB PO SCH (09:38)
[2020-07-09] MEDS ORDERED: Ondansetron ODT 4 MG TAB PO PRN (11:37)
[2020-07-09] MEDS: Ferrous Sulfate 325 MG TAB PO SCH (20:10)
[2020-07-10] MEDS: Acetaminophen 500 MG TAB PO SCH ×3 (03:15→12:09)
[2020-07-10] MEDS: Ibuprofen 200 MG TAB PO SCH ×2 (03:15→09:53)
[2020-07-10] MEDS: Oxymetazoline HCl 0.05% (30 ML BOT) NS SCH (08:41)
[2020-07-10] MEDS: Famotidine 20 MG TAB PER TUBE SCH (08:42)
[2020-07-10] MEDS: Folic Acid 1 MG TAB PO SCH (08:42)
[2020-07-10] MEDS: Amantadine HCl 100 mg Capsule PO SCH (08:42)
[2020-07-10] MEDS: Ascorbic Acid 500 mg Chewable Tablet PO SCH (08:42)
[2020-07-10] MEDS: Ferrous Sulfate 325 MG TAB PO SCH (08:42)
[2020-07-10] MEDS: Enoxaparin Sodium 40 MG/0.4 ML SYRINGE SC SCH (08:42)
[2020-07-10] MEDS: levETIRAcetam 500 mg/5 ml Oral Solution PER TUBE SCH (09:53)
[2020-07-10 11:13] VITALS: BP 104/64; TEMP 99
[2020-07-10] MEDS: Scopolamine 1.5 mg/72 hour Patch TD SCH (15:38)
== END 2020-07-10 16:51 | disposition home or self-care (01) | DRG 3 ==
LOC: EDBD 19:46 → ERS 19:46 → CCU 20:41 → IMCU/EMU 06-28 10:53 → SJJU 07-02 14:18
PROVIDERS: ADMIT Surgery; ATTEND Surgery
PROC: 5A1955Z Respiratory Ventilation, Greater than 96 Consecutive Hours (ICD-10-PCS; 2020-06-15)
PROC: 0W9B00Z Drainage of Left Pleural Cavity with Drainage Device, Open Approach (ICD-10-PCS; 2020-06-15)
PROC: 0W9930Z Drainage of Right Pleural Cavity with Drainage Device, Percutaneous Approach (ICD-10-PCS; 2020-06-15)
PROC: 0QS906Z Reposition Left Femoral Shaft with Intramedullary Internal Fixation Device, Open Approach (ICD-10-PCS; 2020-06-16)
PROC: 0B9J8ZX Drainage of Left Lower Lung Lobe, Via Natural or Artificial Opening Endoscopic, Diagnostic (ICD-10-PCS; 2020-06-18)
PROC: 0B9C8ZX Drainage of Right Upper Lung Lobe, Via Natural or Artificial Opening Endoscopic, Diagnostic (ICD-10-PCS; 2020-06-18)
PROC: 0B9G8ZX Drainage of Left Upper Lung Lobe, Via Natural or Artificial Opening Endoscopic, Diagnostic (ICD-10-PCS; 2020-06-18)
PROC: 0B9F8ZX Drainage of Right Lower Lung Lobe, Via Natural or Artificial Opening Endoscopic, Diagnostic (ICD-10-PCS; 2020-06-18)
PROC: 0B9D8ZX Drainage of Right Middle Lung Lobe, Via Natural or Artificial Opening Endoscopic, Diagnostic (ICD-10-PCS; 2020-06-18)
PROC: 0B9J8ZX Drainage of Left Lower Lung Lobe, Via Natural or Artificial Opening Endoscopic, Diagnostic (ICD-10-PCS; 2020-06-19)
PROC: 0B9C8ZX Drainage of Right Upper Lung Lobe, Via Natural or Artificial Opening Endoscopic, Diagnostic (ICD-10-PCS; 2020-06-19)
PROC: 0B9G8ZX Drainage of Left Upper Lung Lobe, Via Natural or Artificial Opening Endoscopic, Diagnostic (ICD-10-PCS; 2020-06-19)
PROC: 0B9F8ZX Drainage of Right Lower Lung Lobe, Via Natural or Artificial Opening Endoscopic, Diagnostic (ICD-10-PCS; 2020-06-19)
PROC: 3E033XZ Introduction of Vasopressor into Peripheral Vein, Percutaneous Approach (ICD-10-PCS; 2020-06-19)
PROC: 06HY33Z Insertion of Infusion Device into Lower Vein, Percutaneous Approach (ICD-10-PCS; 2020-06-19)
PROC: 0B9D8ZX Drainage of Right Middle Lung Lobe, Via Natural or Artificial Opening Endoscopic, Diagnostic (ICD-10-PCS; 2020-06-19)
PROC: 0BCJ8ZZ Extirpation of Matter from Left Lower Lung Lobe, Via Natural or Artificial Opening Endoscopic (ICD-10-PCS; principal; 2020-06-24)
PROC: 0BCC8ZZ Extirpation of Matter from Right Upper Lung Lobe, Via Natural or Artificial Opening Endoscopic (ICD-10-PCS; 2020-06-24)
PROC: 0B113F4 Bypass Trachea to Cutaneous with Tracheostomy Device, Percutaneous Approach (ICD-10-PCS; 2020-06-24)
PROC: 0BCG8ZZ Extirpation of Matter from Left Upper Lung Lobe, Via Natural or Artificial Opening Endoscopic (ICD-10-PCS; 2020-06-24)
PROC: 0BCF8ZZ Extirpation of Matter from Right Lower Lung Lobe, Via Natural or Artificial Opening Endoscopic (ICD-10-PCS; 2020-06-24)
PROC: 0DH63UZ Insertion of Feeding Device into Stomach, Percutaneous Approach (ICD-10-PCS; 2020-06-24)
PROC: 0BC38ZZ Extirpation of Matter from Right Main Bronchus, Via Natural or Artificial Opening Endoscopic (ICD-10-PCS; 2020-06-24)
DX: S06.6X9A Traumatic subarachnoid hemorrhage with loss of consciousness of unspecified duration, initial encounter (principal); S72.302A Unspecified fracture of shaft of left femur, initial encounter for closed fracture; J69.0 Pneumonitis due to inhalation of food and vomit; A41.9 Sepsis, unspecified organism; R65.21 Severe sepsis with septic shock; J96.01 Acute respiratory failure with hypoxia; J96.02 Acute respiratory failure with hypercapnia; I46.9 Cardiac arrest, cause unspecified; S32.592A Other specified fracture of left pubis, initial encounter for closed fracture; S32.591A Other specified fracture of right pubis, initial encounter for closed fracture; S32.10XA Unspecified fracture of sacrum, initial encounter for closed fracture; S22.41XA Multiple fractures of ribs, right side, initial encounter for closed fracture; S32.9XXA Fracture of unspecified parts of lumbosacral spine and pelvis, initial encounter for closed fracture; S27.0XXA Traumatic pneumothorax, initial encounter; S27.322A Contusion of lung, bilateral, initial encounter; E87.2 Acidosis; D62 Acute posthemorrhagic anemia; E87.0 Hyperosmolality and hypernatremia; T85.528A Displacement of other gastrointestinal prosthetic devices, implants and grafts, initial encounter; Z23 Encounter for immunization; Z20.822 Contact with and (suspected) exposure to COVID-19; R40.2312 Coma scale, best motor response, none, at arrival to emergency department; R40.2112 Coma scale, eyes open, never, at arrival to emergency department; R40.2212 Coma scale, best verbal response, none, at arrival to emergency department; S01.01XA Laceration without foreign body of scalp, initial encounter; T79.6XXA Traumatic ischemia of muscle, initial encounter; E83.51 Hypocalcemia; B96.20 Unspecified Escherichia coli [E. coli] as the cause of diseases classified elsewhere; E87.6 Hypokalemia; E83.39 Other disorders of phosphorus metabolism; Y84.8 Other medical procedures as the cause of abnormal reaction of the patient, or of later complication, without mention of misadventure at the time of the procedure; R13.12 Dysphagia, oropharyngeal phase; Z78.1 Physical restraint status; V54.5XXA Driver of pick-up truck or van injured in collision with heavy transport vehicle or bus in traffic accident, initial encounter
CPT/HCPCS: 31624; 36415; 36416; 36430; 36600; 51702; 70450; 70498; 70551; 71045; 71260; 72125; 72170; 74018; 74177; 74220; 74230; 76000; 80048; 80053; 80076; 80306; 80307; 81001; 82330; 82533; 82550; 82728; 82805; 83605; 83690; 83735; 83880; 84100; 84146; 84439; 84443; 84481; 84484; 85007; 85025; 85027; 85610; 85730; 86850; 86900; 86901; 87040; 87070; 87077; 87086; 87186; 87205; 87635; 90471; 90715; 93005; 93010; 93306; 93970; 94002; 94003; 94640; 95712; 95819; 95957; 96365; 96367; 96375; 96376; 99292; C1713; G0390; J0690; J0744; J1650; J1720; J1815; J1940; J1953; J2001; J2150; J2185; J2248; J2250; J2270; J2370; J2543; J2704; J2765; J3010; J3370; J3411; J3475; J3480; J3490; J7042; J7050; J7070; J7620; J7799; P9016; P9045; Q0162; Q9963; Q9967; S0028; U0002; U0003; U0005

== ENCOUNTER 2020-07-21 09:11 | Outpatient (CLI) | payer OTHER | END 2020-07-21 09:12 | disposition home or self-care (01) | LOC: RAD 09:11 | PROVIDERS: ATTEND Surgery | DX: V89.2XXA Person injured in unspecified motor-vehicle accident, traffic, initial encounter (principal) | CPT/HCPCS: 71046 ==